=== PATIENT | male | born 1970 | race Two or more races ===

== ENCOUNTER → 2017-03-22 | Outpatient (CLI) | payer SELFPAY ==
[2017-03-22 16:03] LABS: CHLORIDE,CL 107 mmol/L (98-110); SODIUM,NA 140 mmol/L (136-146)
== END ==
LOC: MW.CHIM 15:16 → EDBD 15:16
PROVIDERS: ATTEND Internal Medicine
DX: Z00.00 Encounter for general adult medical examination without abnormal findings (principal); I10 Essential (primary) hypertension
CPT/HCPCS: 36415; 80053; 80061; 81001; 83036; 85025

== ENCOUNTER 2019-07-30 12:10 | Emergency (ER) | payer SELFPAY ==
--- NOTE | 2019-07-30 12:25 | EDM.PDOC ---
ED HPI GENERAL MEDICAL PROBLEM - General Chief Complaint: Lower Extremity Injury/Pain Stated Complaint: RIGHT LEG PAIN Time Seen by Provider: 07/30/19 12:13 Source of Information: Reports: Patient History Limitations: Reports: No Limitations - History of Present Illness INITIAL COMMENTS - FREE TEXT/NARRATIVE: HISTORY AND PHYSICAL: History of present illness: Patient is a 48-year-old male presents to the ED today with concern of right ankle injury a few days ago. Patient states he was walking into the grocery store and had stepped in a divot and twisted his right ankle but did not fall. Patient states he's been walking on it since but does have pain of the right ankle. Patient denies any prior injury to the area or any other symptoms or concerns. Patient denies fever, chills, chest pain, shortness of breath, or cough. Denies headache, neck stiff ness, change in vision, syncope, or near syncope. Denies nausea, vomiting, abdominal pain, diarrhea, constipation, or dysuria. Has not noted any blood in urine or stool. Patient has been eating and drinking appropriately. Review of systems: As per history of present illness and below otherwise all systems reviewed and negative. Past medical history: As per history of present illness and as reviewed below otherwise noncontributory. Surgical history: As per history of present illness and as reviewed below otherwise noncontributory. Social history: See social history for further information Family history: As per history of present illness and as reviewed below otherwise noncontributory. Physical exam: General: Patient is alert, oriented, and in no acute distress. Patient laying comfortably on exam table. HEENT: Atraumatic, normocephalic, pupils equal and reactive bilaterally, negative for conjunctival pallor or scleral icterus, mucous membranes moist, TMs normal bilaterally, throat clear, neck supple, nontender, trachea midline. No drooling or trismus noted. No meningeal signs. No hot potato voice noted. Lungs: Clear to auscultation, breath sounds equal bilaterally, chest nontender. Heart: S1S2, regular rate and rhythm without overt murmur Abdomen: Soft, nondistended, nontender. Negative for masses or hepatosplenomegaly. Negative for costovertebral tenderness. Pelvis: Stable nontender. Genitourinary: Deferred. Rectal: Deferred. Skin: Intact, warm, dry. No lesions or rashes noted. Extremities: Negative for cords or calf pain. Neurovascular unremarkable. There is moderate edema of the lateral malleolus of the right ankle. Patient has full range of motion of the right lower extremity without difficulty. Dorsalis these and posterior tibial pulses are grossly intact Neuro: Awake, alert, oriented. Cranial nerves II through XII unremarkable. Cerebellum unremarkable. Motor and sensory unremarkable throughout. Exam nonfocal. Notes: Discussed the importance for follow-up with a primary care provider and orthopedic provider. Voices understanding and is agreeable to plan of care. Denies any further questions or concerns at this time. Diagnostics: Ankle x-ray Therapeutics: Cam boot and crutches Prescription: None Impression: Right ankle injury Plan: 1. Rest, ice, elevate the affected extremity. You can apply ice 15 minutes on, 15 minutes off. 2. Tylenol and/or Ibuprofen as directed for pain management or discomfort. 3. Follow up with the Orthopedic provider and primary care provider as discussed. Return to the ED as needed and as discussed. Definitive disposition and diagnosis as appropriate pending reevaluation and review of above. Right Ankle Pain Score (Numeric/FACES): 10 - Related Data Allergies Allergy/AdvReac Type Severity Reaction Status Date / Time No Known Allergies Allergy Verified 07/30/19 12:23 Home Meds: Home Meds . [Unable to Verify Home Med List] 07/30/19 [History] Review of Systems - Review of Systems Review Of Systems: ROS reveals no pertinent complaints other than HPI. ED EXAM, GENERAL - Physical Exam Exam: See Below (see dictation) Course - Vital Signs Last Recorded V/S: Last Vital Signs Temp 36.9 C 07/30/19 12:20 Pulse 73 07/30/19 12:20 Resp 18 07/30/19 12:20 BP 157/90 H 07/30/19 12:20 Pulse Ox 97 07/30/19 12:20 - Orders/Labs/Meds Orders: Active Orders 24 hr Category Date Time Status DME for Discharge [COMM] Stat Oth 07/30/19 13:31 Ordered Departure - Departure Time of Disposition: 13:31 Disposition: Home, Self-Care 01 Clinical Impression: Right ankle injury Qualifiers: Encounter type: initial encounter Qualified Code(s): S99.911A - Unspecified injury of right ankle, initial encounter - Discharge Information Instructions: Ankle Sprain, [id number] Referrals: PCP,None [Primary Care Provider] - Forms: ED Department Discharge Additional Instructions: The following information is given to patients seen in the emergency department who are being discharged to home. This information is to outline your options for follow-up care. We provide all patients seen in our emergency department with a follow-up referral. The need for follow-up, as well as the timing and circumstances, are variable depending upon the specifics of your emergency department visit. If you don't have a primary care physician on staff, we will provide you with a referral. We always advise you to contact your personal physician following an emergency department visit to inform them of the circumstance of the visit and for follow-up with them and/or the need for any referrals to a consulting specialist. The emergency department will also refer you to a specialist when appropriate. This referral assures that you have the opportunity for follow-up care with a specialist. All of these measure are taken in an effort to provide you with optimal care, which includes your follow-up. Under all circumstances we always encourage you to contact your private physician who remains a resource for coordinating your care. When calling for follow-up care, please make the office aware that this follow-up is from your recent emergency room visit. If for any reason you are refused follow-up, please contact the [facility] Emergency Department at and asked to speak to the emergency department charge nurse. [facility] [address] [place] [id number] [place] [address] 1. Rest, ice, elevate the affected extremity. You can apply ice 15 minutes on, 15 minutes off. 2. Tylenol and/or Ibuprofen as directed for pain management or discomfort. 3. Follow up with the Orthopedic provider or primary care provider as discussed. Return to the ED as needed and as discussed. - My Orders Last 24 Hours: My Active Orders 07/30/19 13:31 DME for Discharge [COMM] Stat - Assessment/Plan Last 24 Hours: My Active Orders 07/30/19 13:31 DME for Discharge [COMM] Stat
--- NOTE | 2019-07-30 13:40 | CR ---
INDICATION: Pain right ankle. COMPARISON: None. Technique: Three-view study right ankle. FINDINGS: No evidence of acute fracture or dislocation. 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 Detailed radiographic examination of the right foot suggested to evaluate the subtalar articulation adequately. Tibiotalar articulation is unremarkable. Soft tissue fullness surrounding the ankle . Impression : No acute fracture. 1. Soft tissue fullness surrounding the right ankle. 2. Radiographic examination of the right foot suggested to rule out pathology involving the subtalar articulation. Dictated by Som Adame MD @ Jul 30 2019 1:36PM Signed by Dr. Som Adame @ Jul 30 2019 1:38PM
== END 2019-07-30 14:19 | disposition home or self-care (01) ==
LOC: MW.ED 12:10
DX: S99.911A Unspecified injury of right ankle, initial encounter (principal); X50.1XXA Overexertion from prolonged static or awkward postures, initial encounter
CPT/HCPCS: 73610-26-RT; 73610-RT; 99283-25

== ENCOUNTER 2019-10-16 21:45 | Emergency (ER) | payer SELFPAY ==
--- NOTE | 2019-10-16 22:10 | EDM.PDOC ---
ED HPI GENERAL MEDICAL PROBLEM - General Chief Complaint: Back Pain or Injury Stated Complaint: FALL Time Seen by Provider: 10/16/19 21:58 - History of Present Illness INITIAL COMMENTS - FREE TEXT/NARRATIVE: HISTORY AND PHYSICAL: History of present illness: Patient's 49-year-old male presents status post fall in which she slipped getting out of the car hitting his head and lower back there is no loss consciousness no head or neck pain or trauma he had no nausea no vomiting so only complaint is right back pain. Review of systems: As per history of present illness and below otherwise all systems reviewed and negative. Past medical history: As per history of present illness and as reviewed below otherwise noncontributory. Surgical history: As per history of present illness and as reviewed below otherwise noncontributory. Social history: No reported history of drug or alcohol abuse. Family history: As per history of present illness and as reviewed below otherwise noncontributory. Physical exam: HEENT: Atraumatic, normocephalic, pupils reactive, negative for conjunctival pallor or scleral icterus, mucous membranes moist, throat clear, neck supple, nontender, trachea midline. Lungs: Clear to auscultation, breath sounds equal bilaterally, chest nontender. Heart: S1S2, regular, negative for clicks, rubs, or JVD. Abdomen: Soft, nondistended, nontender. Negative for masses or hepatosplenomegaly. Negative for costovertebral tenderness. Pelvis: Stable nontender. Genitourinary: Deferred. Rectal: Deferred. Extremities: Atraumatic, negative for cords or calf pain. Neurovascular unremarkable. Neuro: Awake, alert, oriented. Cranial nerves II through XII unremarkable. Cerebellum unremarkable. Motor and sensory unremarkable throughout. Exam nonfocal. Back: Patient has no vertebral body or point tenderness deep tendon reflexes are normal patient is able stand on his toes and back on his heels Diagnostics: X-ray lumbar spine UA Therapeutics: None Impression: #1 observation status post fall #2 minor head injury #3 lumbar contusion/strain Definitive disposition and diagnosis as appropriate pending reevaluation and review of above. right lower back Pain Score (Numeric/FACES): 10 - Related Data Allergies Allergy/AdvReac Type Severity Reaction Status Date / Time No Known Allergies Allergy Verified 10/16/19 21:48 Home Meds: Home Meds Valsartan 80 mg PO DAILY 10/16/19 [History] Past Medical History - Past Health History Medical/Surgical History: Denies Medical/Surgical History Cardiovascular History: Reports: Hypertension Social & Family History - Family History Family Medical History: Noncontributory - Tobacco Use Smoking Status *Q: Never Smoker - Recreational Drug Use Recreational Drug Use: No ED ROS GENERAL - Review of Systems Review Of Systems: Comprehensive ROS is negative, except as noted in HPI. ED EXAM, GENERAL - Physical Exam Exam: See Below (dictation) Course - Vital Signs Last Recorded V/S: Last Vital Signs Temp 35.7 C 10/16/19 21:49 Pulse 64 10/16/19 21:49 Resp 18 10/16/19 21:49 BP 156/105 H 10/16/19 21:49 Pulse Ox 98 10/16/19 21:49 - Orders/Labs/Meds Orders: Active Orders 24 hr Category Date Time Status Lumbar Spine 2 or 3V [CR] Stat Exams 10/16/19 21:51 Ordered Pelvis 1V or 2V [CR] Stat Exams 10/16/19 21:51 Ordered UA RFX MANJEET AND CULT IF INDIC [URIN] Stat Lab 10/16/19 21:45 Received Departure - Departure Time of Disposition: 22:09 Disposition: Home, Self-Care 01 Condition: Good Clinical Impression: Head injury, Lumbar strain, Lumbar contusion - Discharge Information Referrals: PCP,None [Primary Care Provider] - Additional Instructions: The following information is given to patients seen in the emergency department who are being discharged to home. This information is to outline your options for follow-up care. We provide all patients seen in our emergency department with a follow-up referral. The need for follow-up, as well as the timing and circumstances, are variable depending upon the specifics of your emergency department visit. If you don't have a primary care physician on staff, we will provide you with a referral. We always advise you to contact your personal physician following an emergency department visit to inform them of the circumstance of the visit and for follow-up with them and/or the need for any referrals to a consulting specialist. The emergency department will also refer you to a specialist when appropriate. This referral assures that you have the opportunity for followup care with a specialist. All of these measure are taken in an effort to provide you with optimal care, which includes your followup. Under all circumstances we always encourage you to contact your private physician who remains a resource for coordinating your care. When calling for followup care, please make the office aware that this follow-up is from your recent emergency room visit. If for any reason you are refused follow-up, please contact the [facility] emergency department at and asked to speak to the emergency department charge nurse. Motrin/Tylenol as directed follow primary medical doctor return as needed as discussed - My Orders Last 24 Hours: My Active Orders 10/16/19 21:45 UA RFX MANJEET AND CULT IF INDIC [URIN] Stat 10/16/19 21:51 Lumbar Spine 2 or 3V [CR] Stat Pelvis 1V or 2V [CR] Stat - Assessment/Plan Last 24 Hours: My Active Orders 10/16/19 21:45 UA RFX MANJEET AND CULT IF INDIC [URIN] Stat 10/16/19 21:51 Lumbar Spine 2 or 3V [CR] Stat Pelvis 1V or 2V [CR] Stat
--- NOTE | 2019-10-16 22:51 | CR ---
HISTORY: Pain after fall COMPARISON: None available. FINDINGS: The lumbar spine was examined with AP, lateral, and lateral spot views for a total of three views. There is no sign of fracture or subluxation. The vertebral bodies are normal in height and they are in anatomic alignment. The disc spaces are normal in height as well. The visualized bony pelvis and bowel gas pattern are normal in appearance. IMPRESSION: Normal lumbar spine. Dictated by Christopher Sims MD @ Oct 16 2019 10:50PM Signed by Dr. Christopher Sims @ Oct 16 2019 10:51PM
--- NOTE | 2019-10-16 22:54 | CR ---
HISTORY: Pain after fall COMPARISON: None available. FINDINGS: A single AP view of the pelvis shows no sign of fracture or dislocation. The hips are normal in appearance with no significant degenerative changes. The inferior lumbar spine is normal in appearance. The soft tissues of the pelvis are unremarkable. IMPRESSION: Normal examination of the pelvis. Dictated by Christopher Sims MD @ Oct 16 2019 10:50PM Signed by Dr. Christopher Sims @ Oct 16 2019 10:51PM
== END 2019-10-16 23:10 | disposition home or self-care (01) ==
LOC: MW.ED 21:45
DX: S09.90XA Unspecified injury of head, initial encounter (principal); S39.012A Strain of muscle, fascia and tendon of lower back, initial encounter; I10 Essential (primary) hypertension; Z79.899 Other long term (current) drug therapy; V48.4XXA Person boarding or alighting a car injured in noncollision transport accident, initial encounter
CPT/HCPCS: 72100; 72100-26; 72170; 72170-26; 81001; 99283-25

== ENCOUNTER 2019-11-20 14:44 | Emergency (ER) | payer BC, OTHER ==
--- NOTE | 2019-11-20 15:23 | EDM.PDOC ---
ED HPI GENERAL MEDICAL PROBLEM - General Chief Complaint: General Stated Complaint: DIZZY Time Seen by Provider: 11/20/19 15:23 Source of Information: Reports: Patient, Family History Limitations: Reports: No Limitations - History of Present Illness INITIAL COMMENTS - FREE TEXT/NARRATIVE: HISTORY AND PHYSICAL: History of present illness: Patient is a 49-year-old male presents to the ED with complaint of dizziness. Patient states he has been out of his blood pressure medication for the past 3 weeks. He has been having dizziness on and off as well as a mild headache. He denies head injury or trauma, chest pain, shortness of breath, nausea, vomiting , abdominal pain. Review of systems: As per history of present illness and below otherwise all systems reviewed and negative. Past medical history: As per history of present illness and as reviewed below otherwise noncontributory. Surgical history: As per history of present illness and as reviewed below otherwise noncontributory. Social history: No reported history of drug or alcohol abuse. Family history: As per history of present illness and as reviewed below otherwise noncontributory. Physical exam: General: Patient sitting comfortably in no acute distress and nontoxic appearing HEENT: Atraumatic, normocephalic, pupils reactive, negative for conjunctival pallor or scleral icterus, mucous membranes moist, throat clear, neck supple, nontender, trachea midline. No meningeal signs. Lungs: Clear to auscultation, breath sounds equal bilaterally, chest nontender. Heart: S1S2, regular, negative for clicks, rubs, or overt murmur. Abdomen: Soft, nondistended, nontender. Negative for masses or hepatosplenomegaly. Negative for costovertebral tenderness. No rigidity, rebound , guarding. Pelvis: Stable nontender. Genitourinary: Deferred. Rectal: Deferred. Extremities: Atraumatic, negative for cords or calf pain. Neurovascular unremarkable. Neuro: Awake, alert, oriented. Cranial nerves II through XII unremarkable. Cerebellum unremarkable. Motor and sensory unremarkable throughout. Exam nonfocal. Notes: Diagnostics: EKG, troponin, CBC, CMP Therapeutics: none Prescriptions: Valsartan Impression: Medication refill, history of hypertension Definitive disposition and diagnosis as appropriate pending reevaluation and review of above. - Related Data Allergies Allergy/AdvReac Type Severity Reaction Status Date / Time No Known Allergies Allergy Verified 11/20/19 15:12 Home Meds: Home Meds Valsartan 80 mg PO DAILY 10/16/19 [History] Valsartan 80 mg PO DAILY 20 Days #20 tablet 11/20/19 [Rx] Past Medical History - Past Health History Medical/Surgical History: Denies Medical/Surgical History Cardiovascular History: Reports: Hypertension Social & Family History - Family History Family Medical History: Noncontributory - Tobacco Use Smoking Status *Q: Never Smoker - Recreational Drug Use Recreational Drug Use: No ED ROS GENERAL - Review of Systems Review Of Systems: Comprehensive ROS is negative, except as noted in HPI. ED EXAM, GENERAL - Physical Exam Exam: See Below (see dictation) Course - Vital Signs Last Recorded V/S: Last Vital Signs Temp 98.5 F 11/20/19 15:09 Pulse 57 L 11/20/19 15:09 Resp 16 11/20/19 15:09 BP 164/94 H 11/20/19 15:09 Pulse Ox 96 11/20/19 15:09 - Orders/Labs/Meds Orders: Active Orders 24 hr Category Date Time Status EKG Documentation Completion [RC] STAT Care 11/20/19 15:16 Active Labs: Laboratory Tests 11/20/19 11/20/19 Range/Units 15:48 15:48 WBC 6.03 (4.0-11.0) K/uL RBC 5.54 (4.50-5.90) M/uL Hgb 16.9 (13.0-17.0) g/dL Hct 49.2 (38.0-50.0) % MCV 88.8 (80.0-98.0) fL MCH 30.5 (27.0-32.0) pg MCHC 34.3 (31.0-37.0) g/dL RDW Std Deviation 43.1 (28.0-62.0) fl RDW Coeff of Bora 13 (11.0-15.0) % Plt Count 174 (150-400) K/uL MPV 10.90 (7.40-12.00) fL Neut % (Auto) 47.4 L (48.0-80.0) % Lymph % (Auto) 31.7 (16.0-40.0) % Hale % (Auto) 13.8 (0.0-15.0) % Eos % (Auto) 6.8 (0.0-7.0) % Baso % (Auto) 0.3 (0.0-1.5) % Neut # (Auto) 2.9 (1.4-5.7) K/uL Lymph # (Auto) 1.9 (0.6-2.4) K/uL Hale # (Auto) 0.8 (0.0-0.8) K/uL Eos # (Auto) 0.4 (0.0-0.7) K/uL Baso # (Auto) 0.0 (0.0-0.1) K/uL Nucleated RBC % 0.0 /100WBC Nucleated RBCs # 0 K/uL Sodium 139 (136-148) mmol/L Potassium 3.9 (3.5-5.1) mmol/L Chloride 106 (98-107) mmol/L Carbon Dioxide 23.4 (21.0-32.0) mmol/L BUN 16 (7.0-18.0) mg/dL Creatinine 0.9 (0.8-1.3) mg/dL Est Cr Clr Drug Dosing 99.29 mL/min Estimated GFR (MDRD) > 60.0 ml/min Glucose 88 (74-106) mg/dL Calcium 8.8 (8.5-10.1) mg/dL Total Bilirubin 0.4 (0.2-1.0) mg/dL AST 19 (15-37) IU/L ALT 30 (14-63) IU/L Alkaline Phosphatase 64 (46-116) U/L Troponin I < 0.050 (0.000-0.056) ng/mL Total Protein 7.5 (6.4-8.2) g/dL Albumin 3.8 (3.4-5.0) g/dL Globulin 3.7 (2.6-4.0) g/dL Albumin/Globulin Ratio 1.0 (0.9-1.6) Departure - Departure Time of Disposition: 16:36 Disposition: Home, Self-Care 01 Condition: Good Clinical Impression: Medication refill, History of hypertension - Discharge Information Prescriptions: Valsartan 80 mg PO DAILY 20 Days #20 tablet Instructions: Medicine Refill at the Emergency Department Referrals: Shelton Cheema MD [Primary Care Provider] - Forms: ED Department Discharge Additional Instructions: The following information is given to patients seen in the emergency department who are being discharged to home. This information is to outline your options for follow-up care. We provide all patients seen in our emergency department with a follow-up referral. The need for follow-up, as well as the timing and circumstances, are variable depending upon the specifics of your emergency department visit. If you don't have a primary care physician on staff, we will provide you with a referral. We always advise you to contact your personal physician following an emergency department visit to inform them of the circumstance of the visit and for follow-up with them and/or the need for any referrals to a consulting specialist. The emergency department will also refer you to a specialist when appropriate. This referral assures that you have the opportunity for follow-up care with a specialist. All of these measure are taken in an effort to provide you with optimal care, which includes your follow-up. Under all circumstances we always encourage you to contact your private physician who remains a resource for coordinating your care. When calling for follow-up care, please make the office aware that this follow-up is from your recent emergency room visit. If for any reason you are refused follow-up, please contact the [facility] Emergency Department at and asked to speak to the emergency department charge nurse. [facility] [address] [place] [address] [place] [address] Take medication as instructed Follow up with primary care provider Return to ED as needed as discussed Sepsis Event Note - Evaluation Sepsis Screening Result: No Definite Risk - Focused Exam Vital Signs: Vital Signs Temp Pulse Resp BP Pulse Ox 11/20/19 15:09 98.5 F 57 L 16 164/94 H 96 Date Exam was Performed: 11/20/19 Time Exam was Performed: 17:29 - My Orders Last 24 Hours: My Active Orders 11/20/19 15:16 EKG Documentation Completion [RC] STAT - Assessment/Plan Last 24 Hours: My Active Orders 11/20/19 15:16 EKG Documentation Completion [RC] STAT
[2019-11-20 16:31] LABS: BLOOD UREA NITROGEN,BUN 16 mg/dL (7.0-18.0); CARBON DIOXIDE,CO2 23.4 mmol/L (21.0-32.0); CHLORIDE,CL 106 mmol/L (98-107); GLUCOSE RANDOM 88 mg/dL (74-106); POTASSIUM,K 3.9 mmol/L (3.5-5.1); SODIUM,NA 139 mmol/L (136-148)
== END 2019-11-20 17:10 | disposition home or self-care (01) ==
LOC: MW.ED 14:44
DX: I10 Essential (primary) hypertension (principal); Z76.0 Encounter for issue of repeat prescription
CPT/HCPCS: 36415; 80053; 84484; 85025; 93005; 99283; 99284-25

== ENCOUNTER 2019-11-26 13:57 | Emergency (ER) | payer BC ==
[2019-11-26] MEDS ORDERED: Aspirin 81 MG Tab.Chew PO ONE (14:01)
--- NOTE | 2019-11-26 14:55 | CR ---
INDICATION: Shortness of breath TECHNIQUE: Chest 2 views. COMPARISON: None FINDINGS: Cardiovascular and mediastinum: Mild cardiomegaly. Mediastinum is within normal limits. Lungs and pleural spaces: Lungs are clear. No sign of infiltrate or mass. No sign of pleural effusion. No pneumothorax. Bones and soft tissues: Degenerative changes thoracic spine. IMPRESSION: No acute pulmonary or cardiac abnormalities. Mild cardiomegaly. Dictated by Boby Chaves MD @ 11/26/2019 2:54:31 PM Dictated by: Boby Chaves MD @ 11/26/2019 14:54:34 (Electronically Signed)
[2019-11-26 14:57] LABS: BLOOD UREA NITROGEN,BUN 14 mg/dL (7.0-18.0); CARBON DIOXIDE,CO2 25.2 mmol/L (21.0-32.0); CHLORIDE,CL 104 mmol/L (98-107); GLUCOSE RANDOM 111 mg/dL (74-106); LIPASE 128 U/L (73-393); POTASSIUM,K 3.9 mmol/L (3.5-5.1); SODIUM,NA 140 mmol/L (136-148)
[2019-11-26] MEDS ORDERED: Iopamidol 755 MG/ML 200 ML Multipack Bottle IVPUSH ONE (15:54)
--- NOTE | 2019-11-26 16:43 | CT ---
INDICATION: Chest pain, blurred vision, hypertension COMPARISON: Two-view chest radiograph still 11/26/2019 TECHNIQUE: Contrast enhanced axial CT imaging through the chest, optimized for assessment of the pulmonary arterial tree. 55 mL Isovue 370 contrast agent was administered intravenously. Sagittal and coronal reconstructions are provided. FINDINGS: There is adequate opacification of the pulmonary arterial tree without evidence of thromboembolism. There is normal caliber of the main pulmonary artery and thoracic aorta. The heart is normal in size. There is no pericardial effusion. There is no mediastinal lymphadenopathy. The lungs are clear. There is no pleural effusion or pneumothorax. The included osseous structures are unremarkable. No significant abnormality is demonstrated in the visualized upper abdomen. Small hypoattenuating lesions in the partially visualized liver most likely represent benign cysts. IMPRESSION: No evidence of pulmonary thromboembolism or other acute intrathoracic process. Please note that all CT scans at this facility use dose modulation, iterative reconstruction, and/or weight-based dosing when appropriate to reduce radiation dose to as low as reasonably achievable. Dictated by Kimberly Calix MD @ Nov 26 2019 4:41PM Signed by Dr. Kimberly Calix @ Nov 26 2019 4:41PM
--- NOTE | 2019-11-26 18:39 | EDM.PDOC ---
ED [facility] GENERAL MEDICAL PROBLEM - General Chief Complaint: Chest Pain Stated Complaint: HIGH BLOOD PRESSURE Time Seen by Provider: 11/26/19 14:00 - History of Present Illness INITIAL COMMENTS - FREE TEXT/NARRATIVE: HPI 49-year-old obese male with HTN presents for evaluation of resolved poorly characterized substernal chest pain that appeared to radiated to his neck and occurred this morning while cleaning the shop, worsened by physical activity, relieved by rest. Patient denies recent immobilization, leg trauma, estrogen use , surgery in the last four weeks, hemoptysis, or malignancy in the last 6 months. M/S/F/SocHx notable for: please see HPI; remainder reviewed with patient and in chart. ROS: Negative constitutional, eye, cardiovascular, pulmonary, GI, , MSK, skin , neurologic, psychiatric, endocrine unless noted in the HPI. Exam HR 84, RR 18, BP 154/113, T 36.2C, SaO2 96% on room air. Gen: Pleasant, non-toxic appearing, resting comfortably. HEENT: NC, AT, PEERL, EOMI. Resp: Clear to auscultation bilaterally, normal work of breathing. Card: RRR with no M/R/G, no crackles in lung bases, no pedal edema, no JVD appreciated. GI: NT/ND Vascular: Both ankles, calves, and thighs of equal size, no calf tenderness to palpation bilaterally. MSK: No chest wall TTP. No visible deformities, strength and tone WNL. Skin: Normal color with no visible lesions. Neuro: AO x 3, no facial asymmetry, vision and hearing WNL. Psych: Mood and affect appropriate. Labs / Imaging (pertinent): WBC 9.94, Hb 18.1, Na sodium 140, potassium 3.9, glucose 111, AST 15, ALT 29, total bilirubin 0.4, alkaline phosphatase 84, lipase 128, troponin (2 PM) < 0.050 (1705) <0.050. d-dimer 0.66 EKG: SR 93 bpm, nonspecific ST segment changes in the anterior leads, no further ST segment elevations or depressions, no LBBB, PAC present. CXR: no acute pulmonary or cardiac abnormalities. CT Chest: no evidence of pulmonary thromboembolism other acute intrathoracic process. MDM Previous chart, nursing note, and vitals reviewed. A: 49-year-old obese male with HTN presents for evaluation of resolved poorly characterized substernal chest pain that appeared to radiated to his neck and occurred this morning while cleaning the shop, worsened by physical activity, relieved by rest. DDx and Evaluation: * ACS - doubt ACS given a non-ischemic EKG and negative serial troponins. * UA - unlikely given the atypical history and alternate diagnosis. HEART score 4 (Hx - 1, EKG - 1, age - 1, risk factors - 1, troponin - 0; 30 day MACE: 12- 16.6%). However, patient is low risk by the EDACS score. * Pericarditis - consider pericarditis unlikely given the lack of CA segment depressions as well as the absence of diffuse ST-segment elevations, lack of reduction of pain when supine, and lack of a friction rub. * Myocarditis - unlikely given the negative troponin and an EKG without characteristic CA-segment or ST-segment changes. * Dissection - dissection is unlikely given symptoms, and lack of mediastinal widening. * PE - low clinical suspicion given history and alternate diagnosis, further risk stratification (e.g.) Well's not indicated. * Mediastinal Air - no evidence by CXR or auscultation. * Pneumothorax - no evidence by CXR or physical exam. * MSK - doubt given lack of reproducibility on exam. * Endocarditis - no identifiable risk factors, patient afebrile, no new murmurs appreciated on exam; doubt. * GI (Esophageal rupture, GERD) - esophageal rupture effectively excluded given the lack of mediastinal widening, non-toxic appearance, and lack of identifiable risk factors. While not definitively excluded, further evaluation of GERD is deferred to an outpatient setting. ED Course: 1. Patient given ASA. Vital signs remained stable and within clinically acceptable limits. 2. Repeat evaluation at 6:30 PM with patient resting comfortably, pain free. Discussed management options with patient, recommended admission for provocative testing, reviewed elevated heart score with the estimated risk of 12 -16.6%. Review the patient may have sudden cardiac is his for symptom. Answered all of the patients questions and the patient made an informed decision to be discharged home. Provide patient with a list of primary care physicians for follow-up. Recommend patient take 81 mg aspirin daily. Disposition: Discharge with PCP follow up. Return to care precautions given verbally and in writing. Impression: Chest Pain. (please reference below for remainder of encounter information) Emergency Department Assessment of Chest Pain Score (EDACS) from [employer] on 11/26/2019 All calculations should be rechecked by clinician prior to use RESULT SUMMARY: 15 points Low risk by the EDACS Score. If the patient also has: (1) EKG without new ischemic changes and (2) negative initial and 2-hour troponins, then this patient is safe for discharge to early outpatient follow-up investigation (or proceed to earlier inpatient testing). If EKG with ischemic changes or positive troponin, they are not low risk and require normal risk stratification. INPUTS: Age > 49 years Sex > 6 = Male Known coronary artery disease or =3 risk factors > 0 = No Diaphoresis > 0 = No Pain radiates to arm, shoulder, neck, or jaw > 5 = Yes Pain occurred or worsened with inspiration > 0 = No Pain is reproduced by palpation > 0 = No chest Pain Score (Numeric/FACES): 10 - Related Data Allergies Allergy/AdvReac Type Severity Reaction Status Date / Time No Known Allergies Allergy Verified 11/26/19 13:58 Home Meds: Home Meds Valsartan 80 mg PO DAILY 20 Days #20 tablet 11/20/19 [Rx] Past Medical History - Past Health History Medical/Surgical History: Denies Medical/Surgical History HEENT History: Reports: None Cardiovascular History: Reports: Hypertension Respiratory History: Reports: None Gastrointestinal History: Reports: None Genitourinary History: Reports: None Musculoskeletal History: Reports: None Neurological History: Reports: None Psychiatric History: Reports: None Endocrine/Metabolic History: Reports: None Hematologic History: Reports: None Immunologic History: Reports: None Oncologic (Cancer) History: Reports: None Dermatologic History: Reports: None - Past Surgical History Head Surgeries/Procedures: Reports: None HEENT Surgical History: Reports: None Cardiovascular Surgical History: Reports: None Respiratory Surgical History: Reports: None GI Surgical History: Reports: None Male Surgical History: Reports: None Endocrine Surgical History: Reports: None Neurological Surgical History: Reports: None Musculoskeletal Surgical History: Reports: None Oncologic Surgical History: Reports: None Dermatological Surgical History: Reports: None Social & Family History - Family History Family Medical History: Noncontributory - Tobacco Use Smoking Status *Q: Never Smoker Second Hand Smoke Exposure: No - Caffeine Use Caffeine Use: Reports: None - Recreational Drug Use Recreational Drug Use: No ED ROS GENERAL - Review of Systems Review Of Systems: See Below ED EXAM, GENERAL - Physical Exam Exam: See Below Course - Vital Signs Last Recorded V/S: Last Vital Signs Temp 36.2 C 11/26/19 13:59 Pulse 81 11/26/19 17:00 Resp 18 11/26/19 17:00 BP 118/84 11/26/19 17:00 Pulse Ox 97 11/26/19 17:00 - Orders/Labs/Meds Orders: Active Orders 24 hr Category Date Time Status EKG 12 Lead [EKG Documentation Completion] [RC] STAT Care 11/26/19 14:01 Active Labs: Laboratory Tests 11/26/19 11/26/19 11/26/19 Range/Units 14:00 14:00 14:00 WBC 9.94 (4.0-11.0) K/uL RBC 5.94 H (4.50-5.90) M/uL Hgb 18.1 H (13.0-17.0) g/dL Hct 52.0 H (38.0-50.0) % MCV 87.5 (80.0-98.0) fL MCH 30.5 (27.0-32.0) pg MCHC 34.8 (31.0-37.0) g/dL RDW Std Deviation 41.2 (28.0-62.0) fl RDW Coeff of Bora 13 (11.0-15.0) % Plt Count 205 (150-400) K/uL MPV 11.10 (7.40-12.00) fL Neut % (Auto) 63.6 (48.0-80.0) % Lymph % (Auto) 23.2 (16.0-40.0) % Coos % (Auto) 10.2 (0.0-15.0) % Eos % (Auto) 2.8 (0.0-7.0) % Baso % (Auto) 0.2 (0.0-1.5) % Neut # (Auto) 6.3 H (1.4-5.7) K/uL Lymph # (Auto) 2.3 (0.6-2.4) K/uL Coos # (Auto) 1.0 H (0.0-0.8) K/uL Eos # (Auto) 0.3 (0.0-0.7) K/uL Baso # (Auto) 0.0 (0.0-0.1) K/uL Nucleated RBC % 0.0 /100WBC Nucleated RBCs # 0 K/uL D-Dimer, Quantitative 0.66 H (0.0-0.50) mg/L FEU Sodium 140 (136-148) mmol/L Potassium 3.9 (3.5-5.1) mmol/L Chloride 104 (98-107) mmol/L Carbon Dioxide 25.2 (21.0-32.0) mmol/L BUN 14 (7.0-18.0) mg/dL Creatinine 1.2 (0.8-1.3) mg/dL Est Cr Clr Drug Dosing 84.15 mL/min Estimated GFR (MDRD) > 60.0 ml/min Glucose 111 H (74-106) mg/dL Calcium 8.9 (8.5-10.1) mg/dL Total Bilirubin 0.4 (0.2-1.0) mg/dL AST 15 (15-37) IU/L ALT 29 (14-63) IU/L Alkaline Phosphatase 84 (46-116) U/L Troponin I < 0.050 (0.000-0.056) ng/mL Total Protein 7.8 (6.4-8.2) g/dL Albumin 3.9 (3.4-5.0) g/dL Globulin 3.9 (2.6-4.0) g/dL Albumin/Globulin Ratio 1.0 (0.9-1.6) Lipase 128 (73-393) U/L 11/26/19 Range/Units 17:05 WBC (4.0-11.0) K/uL RBC (4.50-5.90) M/uL Hgb (13.0-17.0) g/dL Hct (38.0-50.0) % MCV (80.0-98.0) fL MCH (27.0-32.0) pg MCHC (31.0-37.0) g/dL RDW Std Deviation (28.0-62.0) fl RDW Coeff of Bora (11.0-15.0) % Plt Count (150-400) K/uL MPV (7.40-12.00) fL Neut % (Auto) (48.0-80.0) % Lymph % (Auto) (16.0-40.0) % Coos % (Auto) (0.0-15.0) % Eos % (Auto) (0.0-7.0) % Baso % (Auto) (0.0-1.5) % Neut # (Auto) (1.4-5.7) K/uL Lymph # (Auto) (0.6-2.4) K/uL Coos # (Auto) (0.0-0.8) K/uL Eos # (Auto) (0.0-0.7) K/uL Baso # (Auto) (0.0-0.1) K/uL Nucleated RBC % /100WBC Nucleated RBCs # K/uL D-Dimer, Quantitative (0.0-0.50) mg/L FEU Sodium (136-148) mmol/L Potassium (3.5-5.1) mmol/L Chloride (98-107) mmol/L Carbon Dioxide (21.0-32.0) mmol/L BUN (7.0-18.0) mg/dL Creatinine (0.8-1.3) mg/dL Est Cr Clr Drug Dosing mL/min Estimated GFR (MDRD) ml/min Glucose (74-106) mg/dL Calcium (8.5-10.1) mg/dL Total Bilirubin (0.2-1.0) mg/dL AST (15-37) IU/L ALT (14-63) IU/L Alkaline Phosphatase (46-116) U/L Troponin I < 0.050 (0.000-0.056) ng/mL Total Protein (6.4-8.2) g/dL Albumin (3.4-5.0) g/dL Globulin (2.6-4.0) g/dL Albumin/Globulin Ratio (0.9-1.6) Lipase (73-393) U/L Meds: Medications Discontinued Medications Generic Name Dose Route Start Last Admin Trade Name iMchael PRN Reason Stop Dose Admin Aspirin 324 mg 11/26/19 14:01 11/26/19 14:18 Aspirin PO 11/26/19 14:02 324 mg ONETIME ONE Administration Iopamidol 55 ml 11/26/19 15:54 11/26/19 15:54 Isovue Multipack-370 (76%) IVPUSH 11/26/19 15:55 55 ml ONETIME ONE Administration Departure - Departure Time of Disposition: 18:39 Disposition: Home, Self-Care 01 Clinical Impression: Chest pain - Discharge Information Referrals: PCP,Unobtain [Primary Care Provider] - Additional Instructions: You were in seen in the [facility] Emergency Department for evaluation of chest pain. As we discussed, there are many possible causes for chest pain, one of which is heart disease called unstable angina. This is a type of heart disease that may lead to a heart attack or sudden in the near future. Hospitalization for further evaluation was recommended. You are believed to have a 12 to 16.6% risk in the next 30 days of a major adverse cardiac event, this include sudden . Please follow-up with a primary care physician within 48 hours for further testing and care. If you develop any new symptoms please return immediately to the emergency department. In the meantime, please take one 81 mg aspirin tablet daily. Please read and follow all of the instructions below. When calling for follow-up care, please make the office aware that this follow- up is from your recent emergency room visit. If for any reason you are refused follow-up, please contact the [facility] Emergency Department at and asked to speak to the emergency department charge nurse. Your care today was limited to identifying and treating emergent medical problems only. Many people have subtle differences in their test results that require follow up with their outpatient physician(s) to correctly determine if this represents a normal variation or concerning abnormality with respect to your specific health. The care given to you today was limited to identifying and treating emergent medical problems - you need to request a copy of all of your medical records from today's visit and follow up with your outpatient physician(s) to review both today's visit and your overall health. If you have any new symptoms or if you are at all concerned about your health please return immediately to the emergency department. Prescriptions: If you are uninsured or have financial difficulties with filling your prescription(s), you may consider using a free pharmacy discount service such as [employer] ([employer]) or [employer] ([employer]). These services allow you to search for a medication on your phone (or computer) and obtain a coupon that usually has a significant discount from the list chaparro at a pharmacy. Your physician as well as [facility] does not have a financial relationship with either of these services. You may also wish to speak with your physician to determine if lower cost prescriptions are possible. Obtaining primary care: 1. [facility] provides pediatrics (children), family medicine (children, adults, and some obstetrical care), and internal medicine (adults). Further specialty care is also available. Same day appointments are available. They may be contacted at [phone] and are open Monday through Monday 8 AM to 5 PM. The [facility] are located at [facility], [address] [place] [address] 1320. 2. [facility] offers family medicine, internal medicine, [facility], and further specialty care. [facility] may be contacted at [phone]. [facility] is located at [address] [place], [address]. 3. If you have health insurance, please also contact your insurer for a list of accepting providers under your policy, you may contact these providers for further health care. Occupational health: Work related injuries may consider following up with [facility], . Occupational health services are located at [address] [place] [address] and are open Monday through Monday from 7: 30 am to 5:00 pm. Obstetrical and Gynecological Care: [facility], , Monday through Monday 8 AM to 5 PM. [address] [address]. Eyecare: If you have an eye injury you should follow up with your electric lineman or with [facility], at [phone] or [phone] , they are located at [address] [place] [address]. Dental Care Gabino Mc DDS. [address] [facility].[place], [place]. Ph. [phone] Robert Mc DDS MS. [address] [facility] [address], [place], [place]. Ph. [phone] James Camarillo DDS. 10 11/[address] [place] [address]. Ph. [phone] Rajat Mitchell DDS. [address] [facility] [address] [place], [place]. Ph. [phone] Antonio Sierra DDS PC. [address] [facility] [address] [place], [place]. Ph. Bridgette Jay DDS. [address] [facility]. Ph. [phone] [facility]. [address] [place], [place]. Ph. [phone] [facility]. [address] [place] [address], [place], [place]. Ph. [phone] [facility] [address] [place] [phone]. Ph. [facility]. [address] [place] [address] [address] [place], [place]. Ph. [facility]. [address] [place], [place]. Ph. [phone] Chest Pain of Unclear Cause You have been seen for chest pain. The cause of your pain is not yet known. You should follow up with your primary care physician in the next day to discuss having a cardiac stress test within 48 hours of today. Your doctor has learned about your medical history, examined you, and checked any tests that were done. Still, it is unclear why you are having pain. The doctor thinks there is only a very small chance that your pain is caused by a life-threatening condition. Later, your primary care doctor might do more tests or check you again. Sometimes chest pain is caused by a dangerous condition, like a heart attack, aorta injury, blood clot in the lung, or collapsed lung. It is unlikely that your pain is caused by a life-threatening condition if: Your chest pain lasts only a few seconds at a time; you are not short of breath, nauseated (sick to your stomach), sweaty, or lightheaded; your pain gets worse when you twist or bend; your pain improves with exercise or hard work. Chest pain is serious. It is VERY IMPORTANT that you follow up with your regular doctor and seek medical attention immediately here or at the nearest Emergency Department if your symptoms become worse or they change. YOU SHOULD SEEK MEDICAL ATTENTION IMMEDIATELY, EITHER HERE OR AT THE NEAREST EMERGENCY DEPARTMENT, IF ANY OF THE FOLLOWING OCCURS: Your pain gets worse. Your pain makes you short of breath, nauseated, or sweaty. Your pain gets worse when you walk, go up stairs, or exert yourself. You feel weak, lightheaded, or faint. It hurts to breathe. Your leg swells. Your symptoms get worse or you have new symptoms or concerns. High Blood Pressure (Hypertension) When you were in the emergency department you had an abnormally high blood pressure. High blood pressure can be without symptoms. However high blood pressure can lead to many medical problems including kidney disease, strokes, and heart attacks. Your blood pressure may have been elevated due to pain or the stress of being in the emergency department, however half of people with an elevated blood pressure in the emergency department have export clerk problems with high blood pressure. Please see your primary care physician in 2-3 days for a repeat check of your blood pressure. This may help prevent many health serious problems in the future. Please return to the emergency department if you develop any of the following: chest pain, shortness of breath, new or severe headache, changes in vision or hearing, weakness, or if you are otherwise concerned about your health. Sepsis Event Note - Evaluation Sepsis Screening Result: No Definite Risk - Focused Exam Vital Signs: Vital Signs Temp Pulse Resp BP Pulse Ox 11/26/19 17:00 81 18 118/84 97 11/26/19 16:00 84 18 138/79 96 11/26/19 14:59 83 15 132/87 96 11/26/19 13:59 36.2 C 84 18 154/113 H 96 Date Exam was Performed: 11/26/19 Time Exam was Performed: 18:37 - My Orders Last 24 Hours: My Active Orders 11/26/19 14:01 EKG 12 Lead [EKG Documentation Completion] [RC] STAT - Assessment/Plan Last 24 Hours: My Active Orders 11/26/19 14:01 EKG 12 Lead [EKG Documentation Completion] [RC] STAT
== END 2019-11-26 18:52 | disposition home or self-care (01) ==
LOC: MW.ED 13:57
DX: R07.89 Other chest pain (principal); R07.2 Precordial pain
CPT/HCPCS: 36415; 71046; 71275; 80053; 83690; 84484; 85025; 85379; 93005; 99285; A9270; Q9967

== ENCOUNTER 2020-03-30 21:17 | Emergency (ER) | payer SELFPAY ==
--- NOTE | 2020-03-30 21:40 | EDM.PDOC ---
ED HPI GENERAL MEDICAL PROBLEM - General Chief Complaint: ENT Problem Stated Complaint: RIGHT EAR BLEEDING Time Seen by Provider: 03/30/20 21:39 Source of Information: Reports: Patient History Limitations: Reports: No Limitations - History of Present Illness INITIAL COMMENTS - FREE TEXT/NARRATIVE: HISTORY AND PHYSICAL: History of present illness: Patient is a 49-year-old male presents to the ED with complaint of right ear bleeding. Patient states he got out of the shower this afternoon and was cleaning his ear with a q-tip when his ear starting bleeding. He denies any pain , tinnitus, or dizziness. He is on anticoagulant for history of atrial fibrillation, uncertain which one. Review of systems: As per history of present illness and below otherwise all systems reviewed and negative. Past medical history: As per history of present illness and as reviewed below otherwise noncontributory. Surgical history: As per history of present illness and as reviewed below otherwise noncontributory. Social history: No reported history of drug or alcohol abuse. Family history: As per history of present illness and as reviewed below otherwise noncontributory. Physical exam: General: Patient sitting comfortably in no acute distress and nontoxic appearing HEENT: TMs are intact and clear bilaterally. There is small amount of blood in the right ear canal with a small abrasion that is no longer bleeding. Atraumatic , normocephalic, pupils reactive, negative for conjunctival pallor or scleral icterus, mucous membranes moist, throat clear, neck supple, nontender, trachea midline. No meningeal signs. Lungs: Clear to auscultation, breath sounds equal bilaterally, chest nontender. Heart: S1S2, regular, negative for clicks, rubs, or overt murmur. Abdomen: Soft, nondistended, nontender. Negative for masses or hepatosplenomegaly. Negative for costovertebral tenderness. No rigidity, rebound , guarding. Pelvis: Stable nontender. Genitourinary: Deferred. Rectal: Deferred. Extremities: Atraumatic, negative for cords or calf pain. Neurovascular unremarkable. Neuro: Awake, alert, oriented. Cranial nerves II through XII unremarkable. Cerebellum unremarkable. Motor and sensory unremarkable throughout. Exam nonfocal. Notes: Diagnostics: none Therapeutics: none Prescriptions: none Impression: Abrasion right ear canal Plan: Follow up with primary care provider Return to ED as needed as discussed Definitive disposition and diagnosis as appropriate pending reevaluation and review of above. - Related Data Allergies Allergy/AdvReac Type Severity Reaction Status Date / Time No Known Allergies Allergy Verified 03/30/20 21:37 Home Meds: Home Meds Valsartan 80 mg PO DAILY 20 Days #20 tablet 11/20/19 [Rx] Non-Formulary Medication [NF Drug] 03/30/20 [History] Non-Formulary Medication [NF Drug] 03/30/20 [History] Past Medical History - Past Health History Medical/Surgical History: Denies Medical/Surgical History HEENT History: Reports: None Cardiovascular History: Reports: Hypertension Respiratory History: Reports: None Gastrointestinal History: Reports: None Genitourinary History: Reports: None Musculoskeletal History: Reports: None Neurological History: Reports: None Psychiatric History: Reports: None Endocrine/Metabolic History: Reports: None Hematologic History: Reports: None Immunologic History: Reports: None Oncologic (Cancer) History: Reports: None Dermatologic History: Reports: None - Past Surgical History Head Surgeries/Procedures: Reports: None HEENT Surgical History: Reports: None Cardiovascular Surgical History: Reports: None Respiratory Surgical History: Reports: None GI Surgical History: Reports: None Male Surgical History: Reports: None Endocrine Surgical History: Reports: None Neurological Surgical History: Reports: None Musculoskeletal Surgical History: Reports: None Oncologic Surgical History: Reports: None Dermatological Surgical History: Reports: None Social & Family History - Family History Family Medical History: Noncontributory - Caffeine Use Caffeine Use: Reports: None ED ROS ENT - Review of Systems Review Of Systems: Comprehensive ROS is negative, except as noted in HPI. ED EXAM, ENT - Physical Exam Exam: See Below (see dictation) Course - Vital Signs Last Recorded V/S: Last Vital Signs Temp 96.9 F 03/30/20 21:32 Pulse 54 L 03/30/20 21:32 Resp 18 03/30/20 21:32 BP 147/76 H 03/30/20 21:32 Pulse Ox 96 03/30/20 21:32 Departure - Departure Time of Disposition: 21:48 Disposition: Home, Self-Care 01 Condition: Good Clinical Impression: Abrasion of ear canal - Discharge Information Referrals: PCP,None [Primary Care Provider] - Forms: ED Department Discharge Additional Instructions: The following information is given to patients seen in the emergency department who are being discharged to home. This information is to outline your options for follow-up care. We provide all patients seen in our emergency department with a follow-up referral. The need for follow-up, as well as the timing and circumstances, are variable depending upon the specifics of your emergency department visit. If you don't have a primary care physician on staff, we will provide you with a referral. We always advise you to contact your personal physician following an emergency department visit to inform them of the circumstance of the visit and for follow-up with them and/or the need for any referrals to a consulting specialist. The emergency department will also refer you to a specialist when appropriate. This referral assures that you have the opportunity for follow-up care with a specialist. All of these measure are taken in an effort to provide you with optimal care, which includes your follow-up. Under all circumstances we always encourage you to contact your private physician who remains a resource for coordinating your care. When calling for follow-up care, please make the office aware that this follow-up is from your recent emergency room visit. If for any reason you are refused follow-up, please contact the [facility] Emergency Department at and asked to speak to the emergency department charge nurse. [facility] Primary Care [address] [place] [address] [place] [address] Follow up with primary care provider Return to ED as needed as discussed Sepsis Event Note - Evaluation Sepsis Screening Result: No Definite Risk - Focused Exam Vital Signs: Vital Signs Temp Pulse Resp BP Pulse Ox 03/30/20 21:32 96.9 F 54 L 18 147/76 H 96 Date Exam was Performed: 03/30/20 Time Exam was Performed: 21:48
== END 2020-03-30 22:00 | disposition home or self-care (01) ==
LOC: MW.ED 21:17
DX: S00.411A Abrasion of right ear, initial encounter (principal); I10 Essential (primary) hypertension; Z79.899 Other long term (current) drug therapy; W22.8XXA Striking against or struck by other objects, initial encounter
CPT/HCPCS: 99282

== ENCOUNTER 2020-07-31 21:06 | Emergency (ER) | payer SELFPAY ==
[2020-07-31] MEDS ORDERED: Sodium Chloride 0.9% 10 ML Syringe FLUSH PRN (21:27)
[2020-07-31] MEDS ORDERED: Sodium Chloride 0.9% 2.5 ML Syringe FLUSH PRN (21:27)
--- NOTE | 2020-07-31 21:33 | EDM.PDOC ---
<Osman Cristina - Last Filed: 08/01/20 04:32> ED HPI GENERAL MEDICAL PROBLEM - General Chief Complaint: General Stated Complaint: LEG SWELLING AND DIZZINESS Time Seen by Provider: 07/31/20 21:19 - Related Data Allergies Allergy/AdvReac Type Severity Reaction Status Date / Time No Known Allergies Allergy Verified 07/31/20 21:09 Home Meds: Home Meds Losartan/Hydrochlorothiazide [Losartan-HCTZ 50-12.5 MG] 1 tab PO DAILY 07/31/20 [History] Metoprolol Succinate [Toprol XL] 25 mg PO DAILY 07/31/20 [History] ED ROS GENERAL - Review of Systems Review Of Systems: See Below ED EXAM, GENERAL - Physical Exam Exam: See Below Course - Vital Signs Text/Narrative:: I assumed care of this patient and I handed hours from SWAPNA Gallardo. In brief, this is a 49-year-old male with past medical history of hypertension presenting with lower extremity edema. He has a subacute history of several months of waking up short of breath in the middle of the night, concerning for paroxysmal nocturnal dyspnea. He reportedly had an outpatient sleep study ordered that that did not go to. He presents emergency department today complaining of persistent lower extremity edema and itching to the lower extremities. Complains of worsening lower extremity edema over the past few days. Vital signs show mild hypertension. Normal heart rate and oxygen saturation respiratory rate. CBC shows normal cell lines. Metabolic panel shows mild hyperglycemia. Normal renal function. Negative troponin, BNP. Normal TSH. Urinalysis shows no findings. Chest x-ray is clear by my read, no infiltrate, no pneumothorax, borderline cardiomegaly. Chest x-ray is clear by radiology read. Patient's work-up is reassuring. There is no objective evidence of myocardial infarction, no overt evidence of systolic congestive heart failure, hypothyroidism, renal, or kidney disease contributing to the lower extremity edema. I have no suspicion for DVT at this time given that the lower extremity swelling is symmetric and the patient denies any lower extremity pain, chest pain, or shortness of breath. I suspect that he has undiagnosed diastolic heart failure. I did recommend that he follow-up with his safe and vault service mechanic in the next 1 to 2 weeks for reevaluation. I think he will need an echocardiogram to evaluate his cardiac function. We also discussed that he needs to have his sleep study performed as ordered. I counseled him to continue his existing antihypertensive medications and follow-up closely with his safe and vault service mechanic in the next 1 to 2 weeks for further work-up of the lower extremity edema. There is no indication of an emergent medical condition or systolic heart failure exacerbation that warrants admission to the hospital this point. We did discuss symptomatic treatment of the itching including Benadryl lotion, calamine lotion, and xrdm-gai-bdnithu antihistamine medications including Zyrtec and Claritin. We discussed elevating his legs and reducing his sodium intake. Plan: Patient is stable to discharge home with outpatient cardiology clinic follow-up. Strict emergency department return precautions were provided, patient indicated understanding. All questions were answered prior to departure. Discharged in good condition. Departure - Departure Time of Disposition: 00:26 Disposition: Home, Self-Care 01 Condition: Good Clinical Impression: Bilateral lower extremity edema - Discharge Information *PRESCRIPTION DRUG MONITORING PROGRAM REVIEWED*: Not Applicable *COPY OF PRESCRIPTION DRUG MONITORING REPORT IN PATIENT BERE: Not Applicable Instructions: Edema, [id number] Referrals: Ghassan Khan MD [Physician] - 1 Week (For reevaluation of lower extremity swelling.) Forms: ED Department Discharge Additional Instructions: You were seen in the emergency department for leg swelling. I believe your leg swelling is due to new onset congestive heart failure, which could be caused by your high blood pressure. There is no evidence of fluid in your lungs or a heart attack that would cause us to need to admit you to the hospital tonight. I would like for you to follow-up with your safe and vault service mechanic in the next 1 to 2 weeks for reevaluation. I think you will probably need to have an echocardiogram, or ultrasound, performed of your heart to evaluate how it is working. Continue taking your high blood pressure medications as prescribed by your doctors. Warning signs to come back to the ER include chest pain, shortness of breath, or any other new or concerning symptoms. For the itching in your legs you can take Benadryl cream, use calamine lotion, or take [id number] Zyrtec or Claritin. Those medications are all available without a prescription. Please return the emergency department immediately if your symptoms worsen or if you feel worse. Thank you for choosing the [facility] emergency department in [place] for your medical needs today. It was a pleasure caring for you. The following information is given to patients seen in the emergency department who are being discharged. This information is to outline your options for follow-up care. We provide all patients seen in our emergency department with a follow-up referral. The need for follow-up, as well as the timing and circumstances, are variable depending upon the specifics of your emergency department visit. If you don't have a primary care physician on staff, we will provide you with a referral. We always advise you to contact your personal physician following an emergency department visit to inform them of the circumstance of the visit and for follow-up with them and/or the need for any referrals to a consulting specialist. The emergency department will also refer you to a specialist when appropriate. This referral assures that you have the opportunity for follow-up care with a specialist. All of these measure are taken in an effort to provide you with optimal care, which includes your follow-up. Under all circumstances we always encourage you to contact your private physician who remains a resource for coordinating your care. When calling for follow-up care, please make the office aware that this follow-up is from your recent emergency room visit. If for any reason you are refused follow-up, please contact the [facility] Emergency Department at and asked to speak to the emergency department charge nurse. If you do not have a primary care physician that is caring for you, you can contact these clinics below to set up an appointment to establish care: [facility] - Primary Care [address] [place] [address] [id number] [address] [address] <Dominic Gallardo E - Last Filed: 08/01/20 14:09> ED HPI GENERAL MEDICAL PROBLEM - General Source of Information: Reports: Patient History Limitations: Reports: No Limitations - History of Present Illness INITIAL COMMENTS - FREE TEXT/NARRATIVE: HISTORY AND PHYSICAL: History of present illness: Patient is a 49-year-old male who presents to the emergency room with complaints of bilateral lower extremity swelling and itching. Patient states approximately a month ago he had a sleep study ordered as an outpatient but failed to attend this appointment. This was ordered due to concern of sleep apnea as he was waking up several times each night "gasping for air". He noticed this to be when he would be lying flat. He states this continues to bother him and experiences this almost nightly. 2 days ago he noticed his feet and ankles were swollen and that the skin was very "itchy" to bilateral lower extremities. He denies any chemical exposures, bug/tick bites, or other known sources that would cause this. He does take medication for high blood pressure, one of which is a combination medication with HCTZ. Patient reports he thinks the diuretic is not enough to get rid of the excess fluid. Patient denies any fever, chills, headache, change in vision, syncope or near syncope. Denies any chest pain, back pain, cough or hemoptysis. Denies any abdominal pain, nausea, vomiting, diarrhea, constipation or dysuria. Has not noted any blood in urine or stool. Patient has been eating and drinking appropriately. Japanese speaking - [employer] translation services offered Review of systems: As per history of present illness and below otherwise all systems reviewed and negative. Past medical history: As per history of present illness and as reviewed below otherwise noncontributory. Surgical history: As per history of present illness and as reviewed below otherwise noncontributory. Social history: See social history for further information Family history: As per history of present illness and as reviewed below otherwise noncontributory. Physical exam: General: Well developed and well nourished 49-year-old male. Alert and orientated x 3. Nontoxic in appearance and in no acute distress. Vital signs are stable and have been reviewed by me. Nursing notes were reviewed. Patient is accompanied by his brother who is his preferred signal maintainer, Japanese-speaking. HEENT: Atraumatic, normocephalic, pupils equal and reactive bilaterally, negative for conjunctival pallor or scleral icterus, mucous membranes moist, TMs normal bilaterally, throat clear, neck supple, nontender, trachea midline. No drooling or trismus noted. No meningeal signs. No hot potato voice noted. Lungs: Slightly diminished otherwise clear to auscultation, breath sounds equal bilaterally, chest nontender. Normal work of breathing, no accessory muscles used. Heart: S1S2, regular rate and rhythm without overt murmur Abdomen: Soft, obese, nontender. Negative for masses or costovertebral tenderness. Pelvis: Stable nontender. Skin: Slight/faint redness to anterior shins bilaterally. Otherwise skin is intact, warm, dry. No lesions or rashes noted. Hematologic: No petechiae or purpra. Mucosa appropriate color and normal nail bed color and refill. Extremities: Atraumatic, moves all extremities per self without difficulty or deficits, negative for cords or calf pain. Strong pedal/pretibial pulses. +2 pitting edema to bilateral LE. Neurovascular unremarkable. Neuro: Awake, alert, oriented. Cranial nerves II through XII unremarkable. Cerebellum unremarkable. Motor and sensory unremarkable throughout. Exam nonfocal. Notes: Diagnostic results are pending. Patient is nontoxic in appearance, VSS. Dr Cristina, attending physician was informed of this patient and has assumed care of this patient at 2200 - he will follow, treat and disposition patient appr opriately. Diagnostics: CBC, CMP, UA, TSH, Troponin, EKG, CXR Therapeutics: SL Definitive disposition and diagnosis as appropriate pending reevaluation and review of above. BLE Pain Score (Numeric/FACES): 9 Past Medical History - Past Health History Medical/Surgical History: Denies Medical/Surgical History HEENT History: Reports: None Cardiovascular History: Reports: Hypertension Other Cardiovascular History: irregular heart rate Respiratory History: Reports: None, Sleep Apnea Other Respiratory History: needs sleep study and machine Gastrointestinal History: Reports: None Genitourinary History: Reports: None Musculoskeletal History: Reports: None Neurological History: Reports: None Psychiatric History: Reports: None Endocrine/Metabolic History: Reports: None Hematologic History: Reports: None Immunologic History: Reports: None Oncologic (Cancer) History: Reports: None Dermatologic History: Reports: None - Past Surgical History Head Surgeries/Procedures: Reports: None HEENT Surgical History: Reports: None Cardiovascular Surgical History: Reports: None Respiratory Surgical History: Reports: None GI Surgical History: Reports: None Male Surgical History: Reports: None Endocrine Surgical History: Reports: None Neurological Surgical History: Reports: None Musculoskeletal Surgical History: Reports: None Oncologic Surgical History: Reports: None Dermatological Surgical History: Reports: None Social & Family History - Family History Family Medical History: Noncontributory - Caffeine Use Caffeine Use: Reports: Tea - Recreational Drug Use Recreational Drug Use: No Course - Vital Signs Last Recorded V/S: Last Vital Signs Temp 96.2 F L 07/31/20 21:14 Pulse 57 L 07/31/20 23:45 Resp 17 07/31/20 23:45 BP 128/68 07/31/20 23:45 Pulse Ox 95 07/31/20 23:45 - Orders/Labs/Meds Orders: Active Orders 24 hr Category Date Time Status Saline Lock Insert [OM.PC] Stat Oth 07/31/20 21:27 Ordered Labs: Laboratory Tests 07/31/20 07/31/20 07/31/20 Range/Units 21:37 21:37 21:37 WBC 6.01 (4.0-11.0) K/uL RBC 5.30 (4.50-5.90) M/uL Hgb 15.9 (13.0-17.0) g/dL Hct 46.8 (38.0-50.0) % MCV 88.3 (80.0-98.0) fL MCH 30.0 (27.0-32.0) pg MCHC 34.0 (31.0-37.0) g/dL RDW Std Deviation 43.0 (28.0-62.0) fl RDW Coeff of Bora 13 (11.0-15.0) % Plt Count 195 (150-400) K/uL MPV 11.00 (7.40-12.00) fL Neut % (Auto) 46.9 L (48.0-80.0) % Lymph % (Auto) 34.9 (16.0-40.0) % [place] % (Auto) 10.3 (0.0-15.0) % Eos % (Auto) 7.7 H (0.0-7.0) % Baso % (Auto) 0.2 (0.0-1.5) % Neut # (Auto) 2.8 (1.4-5.7) K/uL Lymph # (Auto) 2.1 (0.6-2.4) K/uL [place] # (Auto) 0.6 (0.0-0.8) K/uL Eos # (Auto) 0.5 (0.0-0.7) K/uL Baso # (Auto) 0.0 (0.0-0.1) K/uL Nucleated RBC % 0.0 /100WBC Nucleated RBCs # 0 K/uL Sodium 139 (136-148) mmol/L Potassium 3.6 (3.5-5.1) mmol/L Chloride 103 (98-107) mmol/L Carbon Dioxide 25.2 (21.0-32.0) mmol/L BUN 16 (7.0-18.0) mg/dL Creatinine 1.1 (0.8-1.3) mg/dL Est Cr Clr Drug Dosing 81.23 mL/min Estimated GFR (MDRD) > 60.0 ml/min Glucose 121 H (74-106) mg/dL Calcium 9.3 (8.5-10.1) mg/dL Total Bilirubin 0.5 (0.2-1.0) mg/dL AST 25 (15-37) IU/L ALT 40 (14-63) IU/L Alkaline Phosphatase 65 (46-116) U/L Troponin I < 0.050 (0.000-0.056) ng/mL B-Natriuretic Peptide 13 (<100) PG/ML Total Protein 7.2 (6.4-8.2) g/dL Albumin 3.7 (3.4-5.0) g/dL Globulin 3.5 (2.6-4.0) g/dL Albumin/Globulin Ratio 1.1 (0.9-1.6) TSH 3rd Generation 1.70 (0.36-3.74) uIU/mL Urine Color Urine Appearance Urine pH (5.0-8.0) Ur Specific Brandon (1.001-1.035) Urine Protein (NEGATIVE) mg/dL Urine Glucose (UA) (NEGATIVE) mg/dL Urine Ketones (NEGATIVE) mg/dL Urine Occult Blood (NEGATIVE) Urine Nitrite (NEGATIVE) Urine Bilirubin (NEGATIVE) Urine Urobilinogen (<2.0) EU/dL Ur Leukocyte Esterase (NEGATIVE) 07/31/20 Range/Units 21:40 WBC (4.0-11.0) K/uL RBC (4.50-5.90) M/uL Hgb (13.0-17.0) g/dL Hct (38.0-50.0) % MCV (80.0-98.0) fL MCH (27.0-32.0) pg MCHC (31.0-37.0) g/dL RDW Std Deviation (28.0-62.0) fl RDW Coeff of Bora (11.0-15.0) % Plt Count (150-400) K/uL MPV (7.40-12.00) fL Neut % (Auto) (48.0-80.0) % Lymph % (Auto) (16.0-40.0) % [place] % (Auto) (0.0-15.0) % Eos % (Auto) (0.0-7.0) % Baso % (Auto) (0.0-1.5) % Neut # (Auto) (1.4-5.7) K/uL Lymph # (Auto) (0.6-2.4) K/uL [place] # (Auto) (0.0-0.8) K/uL Eos # (Auto) (0.0-0.7) K/uL Baso # (Auto) (0.0-0.1) K/uL Nucleated RBC % /100WBC Nucleated RBCs # K/uL Sodium (136-148) mmol/L Potassium (3.5-5.1) mmol/L Chloride (98-107) mmol/L Carbon Dioxide (21.0-32.0) mmol/L BUN (7.0-18.0) mg/dL Creatinine (0.8-1.3) mg/dL Est Cr Clr Drug Dosing mL/min Estimated GFR (MDRD) ml/min Glucose (74-106) mg/dL Calcium (8.5-10.1) mg/dL Total Bilirubin (0.2-1.0) mg/dL AST (15-37) IU/L ALT (14-63) IU/L Alkaline Phosphatase (46-116) U/L Troponin I (0.000-0.056) ng/mL B-Natriuretic Peptide (<100) PG/ML Total Protein (6.4-8.2) g/dL Albumin (3.4-5.0) g/dL Globulin (2.6-4.0) g/dL Albumin/Globulin Ratio (0.9-1.6) TSH 3rd Generation (0.36-3.74) uIU/mL Urine Color YELLOW Urine Appearance CLEAR Urine pH 6.0 (5.0-8.0) Ur Specific Brandon 1.015 (1.001-1.035) Urine Protein NEGATIVE (NEGATIVE) mg/dL Urine Glucose (UA) NEGATIVE (NEGATIVE) mg/dL Urine Ketones NEGATIVE (NEGATIVE) mg/dL Urine Occult Blood NEGATIVE (NEGATIVE) Urine Nitrite NEGATIVE (NEGATIVE) Urine Bilirubin NEGATIVE (NEGATIVE) Urine Urobilinogen 0.2 (<2.0) EU/dL Ur Leukocyte Esterase NEGATIVE (NEGATIVE) Meds: Medications Discontinued Medications Generic Name Dose Route Start Last Admin Trade Name Freq PRN Reason Stop Dose Admin Sodium Chloride 10 ml 07/31/20 21:27 Saline Flush FLUSH ASDIRECTED PRN Keep Vein Open Sodium Chloride 2.5 ml 07/31/20 21:27 Saline Flush FLUSH ASDIRECTED PRN Keep Vein Open Sepsis Event Note (ED) - Evaluation Sepsis Screening Result: No Definite Risk - My Orders Last 24 Hours: My Active Orders 07/31/20 21:27 Saline Lock Insert [OM.PC] Stat - Assessment/Plan Last 24 Hours: My Active Orders 07/31/20 21:27 Saline Lock Insert [OM.PC] Stat
[2020-07-31 22:16] LABS: BLOOD UREA NITROGEN,BUN 16 mg/dL (7.0-18.0); CARBON DIOXIDE,CO2 25.2 mmol/L (21.0-32.0); CHLORIDE,CL 103 mmol/L (98-107); GLUCOSE RANDOM 121 mg/dL (74-106); POTASSIUM,K 3.6 mmol/L (3.5-5.1); SODIUM,NA 139 mmol/L (136-148)
--- NOTE | 2020-08-01 00:04 | CR ---
Indication: Pulmonary edema Technique: Chest 1 view Comparison: None Findings/Impression: Cardiovascular and mediastinum: Heart size and vasculature are normal in caliber and appearance. Lungs and pleural space: Lungs are clear. No sign of infiltrate or mass. No sign of pleural effusion. No pneumothorax. Bones and soft tissues: No acute findings. Dictated by Phill Salvador MD @ Jul 31 2020 10:37PM (Electronically Signed)
== END 2020-08-01 00:44 | disposition home or self-care (01) ==
LOC: MW.ED 21:06
DX: R60.0 Localized edema (principal); L29.9 Pruritus, unspecified; I10 Essential (primary) hypertension; Z79.899 Other long term (current) drug therapy
CPT/HCPCS: 36415; 71045; 71045-26; 80053; 81003; 83880; 84443; 84484; 85025; 93005; 99284-25

== ENCOUNTER 2020-08-06 21:22 | Emergency (ER) | payer SELFPAY ==
[2020-08-06] MEDS ORDERED: Sodium Chloride 0.9% 10 ML Syringe FLUSH PRN (22:42)
[2020-08-06] MEDS ORDERED: Sodium Chloride 0.9% 2.5 ML Syringe FLUSH PRN (22:42)
[2020-08-06] MEDS ORDERED: Furosemide 40 MG/4 ML VIAL IVPUSH ONE (22:44)
--- NOTE | 2020-08-06 23:45 | CR ---
INDICATION: peripheral edema, occasional SOB TECHNIQUE: Chest 2 views. COMPARISON: 07/31/20 FINDINGS: Cardiovascular and mediastinum: Heart size and vasculature are normal in caliber and appearance. Mediastinum is within normal limits. Lungs and pleural spaces: Lungs are clear. No sign of infiltrate or mass. No sign of pleural effusion. No pneumothorax. Bones and soft tissues: No significant findings. IMPRESSION: Unremarkable chest. Dictated by: Boby Chaves MD @ 08/06/2020 23:44:26 (Electronically Signed)
--- NOTE | 2020-08-07 00:02 | US ---
INDICATION: Lower extremity edema TECHNIQUE: Ultrasound venous duplex lower left extremity. Compression venous exam was performed using christianson-scale, color Doppler, and spectral Doppler analysis. COMPARISON: None FINDINGS: Sonographic imaging demonstrates the left common femoral, deep femoral, superficial femoral, popliteal, posterior tibial and greater saphenous veins to be fully compressible with normal color Doppler blood flow. Edema adjacent to the ankle. IMPRESSION: No evidence of deep venous thrombosis left lower extremity. Edema adjacent to the ankle. Dictated by Boby Chaves MD @ 08/06/2020 11:59:37 PM Dictated by: Boby Chaves MD @ 08/06/2020 23:59:43 (Electronically Signed)
[2020-08-07 00:29] LABS: BLOOD UREA NITROGEN,BUN 17 mg/dL (7.0-18.0); CARBON DIOXIDE,CO2 27.7 mmol/L (21.0-32.0); CHLORIDE,CL 107 mmol/L (98-107); GLUCOSE RANDOM 92 mg/dL (74-106); POTASSIUM,K 3.9 mmol/L (3.5-5.1); SODIUM,NA 142 mmol/L (136-148)
--- NOTE | 2020-08-07 01:04 | EDM.PDOC ---
ED HPI GENERAL MEDICAL PROBLEM - General Chief Complaint: General Stated Complaint: LT HAND AND LEG PAIN Time Seen by Provider: 08/06/20 22:33 - History of Present Illness INITIAL COMMENTS - FREE TEXT/NARRATIVE: HISTORY AND PHYSICAL: History of present illness: This is a 49-year-old gentleman with a history significant for hypertension who presents the ER today secondary to left lower extremity swelling as well as some swelling to his left upper extremity. Patient reports that he noticed that earlier today. Patient reports that he has had edema to his lower extremities in the past and was seen and evaluated here proximally 1 week ago but was told it was probably from too much fluid on board. Patient reports that he has been try to keep his legs elevated without significant relief. Patient does take a diuretic and thinks it is not strong enough. Patient denies any history of diabetes, liver, lung, kidney, OR, CHF, PE, DVT. Patient denies any tobacco alcohol or drugs. Patient has no known drug allergies. Patient denies any abdominal or chest surgeries in the past. Patient has any recent fevers, shakes, chills, nausea, vomiting, diarrhea, dysuria, frequency, urgency, shortness of breath, cough, URI symptoms. Patient denies any orthopnea, PND, dyspnea on exertion. Patient reports that his legs are so swollen that he had to cut his shoes in order to get his feet into them. Review of systems: As per history of present illness and below otherwise all systems reviewed and negative. Past medical history: As per history of present illness and as reviewed below otherwise noncontributory. Surgical history: As per history of present illness and as reviewed below otherwise noncontributory. Social history: No reported history of drug or alcohol abuse. Family history: As per history of present illness and as reviewed below otherwise noncontributory. Physical exam: HEENT: Atraumatic, normocephalic, pupils reactive, negative for conjunctival pallor or scleral icterus, mucous membranes moist, throat clear, neck supple, nontender, trachea midline. Lungs: Clear to auscultation, breath sounds equal bilaterally, chest nontender. Heart: S1S2, regular, negative for clicks, rubs, or JVD. Abdomen: Soft, nondistended, nontender. Negative for masses or hepatosplenomegaly. Negative for costovertebral tenderness. Pelvis: Stable nontender. Genitourinary: Deferred. Rectal: Deferred. Extremities: Atraumatic, negative for cords or calf pain. Neurovascular unremarkable. Neuro: Awake, alert, oriented. Cranial nerves II through XII unremarkable. Cerebellum unremarkable. Motor and sensory unremarkable throughout. Exam nonfocal. Patient's ER physical exam significant for significant swelling to his bilateral lower extremities however his left lower extremity does appear to be slightly more swollen than his right lower extremity. Patient's upper extremities appear to be equal bilaterally although the patient subjectively reports that his left upper forearm appears to be slightly more swollen than his right upper forearm. Patient has no JVD. Patient has no S3. Patient has no rales on exam. Patient does not show any overt signs of left-sided heart failure. Diagnostics: Ultrasound of his left lower extremity rule out DVT was obtained: Negative for DVT. Patient's BNP is within normal limits. Patient's urinalysis did not reveal any proteinuria. Patient CBC and CMP are within normal limits with normal renal function and normal LFTs. Therapeutics: Lasix 60 mg IV given in the ED. Patient reports that he has gone to the bathroom to urinate 4 times since Lasix has been given and feels much improved. Patient reports that the swelling has gone down significantly and that his legs now appear to be symmetric as well as his upper extremities. Assessment and plan: Lower extremity edema of unclear etiology. This is most likely secondary to dependent edema. Patient was given Lasix 60 mg IV in the ED and will be discharged home with a prescription for Lasix 40 mg once a day for 3 more days. Patient does have an appointment to see his primary care physician on August 12 at 9 AM at which time he was instructed to have a discussion with his doctor regarding long-term management of his peripheral edema. We have ruled out renal causes, DVT, liver disease as causes for his peripheral edema. Patient at this time is stable for further outpatient management of his peripheral edema. Reassessment at the time of disposition demonstrates that the patient is in no acute distress. The patient has remained stable throughout the entire ED visit and is without objective evidence for acute process requiring urgent intervention or hospitalization. The patient is stable for discharge, counseling is provided as documented above, discussed symptomatic treatment and specific conditions for return. I have spoken with the patient/caregive and discussed todays findings, in addition to providing specific details for the plan of care. Questions are answered and there is agreement with the plan. Definitive disposition and diagnosis as appropriate pending reevaluation and review of above. left hand Pain Score (Numeric/FACES): 8 - Related Data Allergies Allergy/AdvReac Type Severity Reaction Status Date / Time No Known Allergies Allergy Verified 08/06/20 21:35 Home Meds: Home Meds Losartan/Hydrochlorothiazide [Losartan-HCTZ 50-12.5 MG] 1 tab PO DAILY 07/31/20 [History] Metoprolol Succinate [Toprol XL] 25 mg PO DAILY 07/31/20 [History] Furosemide [Lasix] 40 mg PO DAILY #3 tab 08/07/20 [Rx] Potassium Chloride 20 meq PO BID #6 packet 08/07/20 [Rx] Past Medical History - Past Health History Medical/Surgical History: Denies Medical/Surgical History HEENT History: Reports: None Cardiovascular History: Reports: Hypertension Other Cardiovascular History: irregular heart rate Respiratory History: Reports: None, Sleep Apnea Other Respiratory History: needs sleep study and machine Gastrointestinal History: Reports: None Genitourinary History: Reports: None Musculoskeletal History: Reports: None Neurological History: Reports: None Psychiatric History: Reports: None Endocrine/Metabolic History: Reports: None Hematologic History: Reports: None Immunologic History: Reports: None Oncologic (Cancer) History: Reports: None Dermatologic History: Reports: None - Past Surgical History Head Surgeries/Procedures: Reports: None HEENT Surgical History: Reports: None Cardiovascular Surgical History: Reports: None Respiratory Surgical History: Reports: None GI Surgical History: Reports: None Male Surgical History: Reports: None Endocrine Surgical History: Reports: None Neurological Surgical History: Reports: None Musculoskeletal Surgical History: Reports: None Oncologic Surgical History: Reports: None Dermatological Surgical History: Reports: None Social & Family History - Family History Family Medical History: Noncontributory - Tobacco Use Smoking Status *Q: Never Smoker - Caffeine Use Caffeine Use: Reports: Tea - Recreational Drug Use Recreational Drug Use: No ED ROS GENERAL - Review of Systems Review Of Systems: See Below ED EXAM, GENERAL - Physical Exam Exam: See Below Course - Vital Signs Last Recorded V/S: Last Vital Signs Temp 97.2 F 08/06/20 21:31 Pulse 48 L 08/06/20 21:31 Resp 16 08/06/20 21:31 BP 140/77 08/06/20 21:31 Pulse Ox 96 08/06/20 21:31 - Orders/Labs/Meds Orders: Active Orders 24 hr Category Date Time Status Sodium Chloride 0.9% [Saline Flush] Med 08/06/20 22:42 Active 10 ml FLUSH ASDIRECTED PRN Sodium Chloride 0.9% [Saline Flush] Med 08/06/20 22:42 Active 2.5 ml FLUSH ASDIRECTED PRN Saline Lock Insert [OM.PC] Stat Oth 08/06/20 22:42 Ordered Medication Orders Sodium Chloride (Saline Flush) 10 ml FLUSH ASDIRECTED PRN PRN Reason: Keep Vein Open Sodium Chloride (Saline Flush) 2.5 ml FLUSH ASDIRECTED PRN PRN Reason: Keep Vein Open Labs: Laboratory Tests 08/06/20 08/06/20 08/06/20 Range/Units 23:00 23:58 23:58 WBC 7.30 (4.0-11.0) K/uL RBC 5.17 (4.50-5.90) M/uL Hgb 15.3 (13.0-17.0) g/dL Hct 46.3 (38.0-50.0) % MCV 89.6 (80.0-98.0) fL MCH 29.6 (27.0-32.0) pg MCHC 33.0 (31.0-37.0) g/dL RDW Std Deviation 44.3 (28.0-62.0) fl RDW Coeff of [place] 14 (11.0-15.0) % Plt Count 183 (150-400) K/uL MPV 10.90 (7.40-12.00) fL Neut % (Auto) 49.5 (48.0-80.0) % Lymph % (Auto) 30.8 (16.0-40.0) % [place] % (Auto) 13.3 (0.0-15.0) % Eos % (Auto) 6.3 (0.0-7.0) % Baso % (Auto) 0.1 (0.0-1.5) % Neut # (Auto) 3.6 (1.4-5.7) K/uL Lymph # (Auto) 2.3 (0.6-2.4) K/uL [place] # (Auto) 1.0 H (0.0-0.8) K/uL Eos # (Auto) 0.5 (0.0-0.7) K/uL Baso # (Auto) 0.0 (0.0-0.1) K/uL Nucleated RBC % 0.0 /100WBC Nucleated RBCs # 0 K/uL Sodium 142 (136-148) mmol/L Potassium 3.9 (3.5-5.1) mmol/L Chloride 107 (98-107) mmol/L Carbon Dioxide 27.7 (21.0-32.0) mmol/L BUN 17 (7.0-18.0) mg/dL Creatinine 1.1 (0.8-1.3) mg/dL Est Cr Clr Drug Dosing 91.80 mL/min Estimated GFR (MDRD) > 60.0 ml/min Glucose 92 (74-106) mg/dL Calcium 7.9 L (8.5-10.1) mg/dL Total Bilirubin 0.4 (0.2-1.0) mg/dL AST 27 (15-37) IU/L ALT 39 (14-63) IU/L Alkaline Phosphatase 76 (46-116) U/L Troponin I < 0.050 (0.000-0.056) ng/mL B-Natriuretic Peptide (<100) PG/ML Total Protein 7.0 (6.4-8.2) g/dL Albumin 3.7 (3.4-5.0) g/dL Globulin 3.3 (2.6-4.0) g/dL Albumin/Globulin Ratio 1.1 (0.9-1.6) Urine Color YELLOW Urine Appearance CLEAR Urine pH 6.0 (5.0-8.0) Ur Specific [place] >= 1.030 (1.001-1.035) Urine Protein NEGATIVE (NEGATIVE) mg/dL Urine Glucose (UA) NEGATIVE (NEGATIVE) mg/dL Urine Ketones NEGATIVE (NEGATIVE) mg/dL Urine Occult Blood NEGATIVE (NEGATIVE) Urine Nitrite NEGATIVE (NEGATIVE) Urine Bilirubin NEGATIVE (NEGATIVE) Urine Urobilinogen 0.2 (<2.0) EU/dL Ur Leukocyte Esterase NEGATIVE (NEGATIVE) 08/06/20 Range/Units 23:58 WBC (4.0-11.0) K/uL RBC (4.50-5.90) M/uL Hgb (13.0-17.0) g/dL Hct (38.0-50.0) % MCV (80.0-98.0) fL MCH (27.0-32.0) pg MCHC (31.0-37.0) g/dL RDW Std Deviation (28.0-62.0) fl RDW Coeff of Bora (11.0-15.0) % Plt Count (150-400) K/uL MPV (7.40-12.00) fL Neut % (Auto) (48.0-80.0) % Lymph % (Auto) (16.0-40.0) % [place] % (Auto) (0.0-15.0) % Eos % (Auto) (0.0-7.0) % Baso % (Auto) (0.0-1.5) % Neut # (Auto) (1.4-5.7) K/uL Lymph # (Auto) (0.6-2.4) K/uL [place] # (Auto) (0.0-0.8) K/uL Eos # (Auto) (0.0-0.7) K/uL Baso # (Auto) (0.0-0.1) K/uL Nucleated RBC % /100WBC Nucleated RBCs # K/uL Sodium (136-148) mmol/L Potassium (3.5-5.1) mmol/L Chloride (98-107) mmol/L Carbon Dioxide (21.0-32.0) mmol/L BUN (7.0-18.0) mg/dL Creatinine (0.8-1.3) mg/dL Est Cr Clr Drug Dosing mL/min Estimated GFR (MDRD) ml/min Glucose (74-106) mg/dL Calcium (8.5-10.1) mg/dL Total Bilirubin (0.2-1.0) mg/dL AST (15-37) IU/L ALT (14-63) IU/L Alkaline Phosphatase (46-116) U/L Troponin I (0.000-0.056) ng/mL B-Natriuretic Peptide 32 (<100) PG/ML Total Protein (6.4-8.2) g/dL Albumin (3.4-5.0) g/dL Globulin (2.6-4.0) g/dL Albumin/Globulin Ratio (0.9-1.6) Urine Color Urine Appearance Urine pH (5.0-8.0) Ur Specific [place] (1.001-1.035) Urine Protein (NEGATIVE) mg/dL Urine Glucose (UA) (NEGATIVE) mg/dL Urine Ketones (NEGATIVE) mg/dL Urine Occult Blood (NEGATIVE) Urine Nitrite (NEGATIVE) Urine Bilirubin (NEGATIVE) Urine Urobilinogen (<2.0) EU/dL Ur Leukocyte Esterase (NEGATIVE) Meds: Medications Generic Name Dose Route Start Last Admin Trade Name Freq PRN Reason Stop Dose Admin Sodium Chloride 10 ml 08/06/20 22:42 Saline Flush FLUSH ASDIRECTED PRN Keep Vein Open Sodium Chloride 2.5 ml 08/06/20 22:42 Saline Flush FLUSH ASDIRECTED PRN Keep Vein Open Discontinued Medications Generic Name Dose Route Start Last Admin Trade Name Freq PRN Reason Stop Dose Admin Furosemide 60 mg 08/06/20 22:44 08/07/20 00:01 Lasix IVPUSH 08/06/20 22:45 60 mg NOW ONE Administration Departure - Departure Time of Disposition: 01:03 Disposition: Home, Self-Care 01 Condition: Good Clinical Impression: Peripheral edema - Discharge Information Instructions: Peripheral Edema Referrals: PCP,None [Primary Care Provider] - Additional Instructions: You were seen and evaluated in the ER today secondary to the swelling in your left lower extremity as well as your left upper extremity. The work-up in the ED has been unremarkable. You will be given a prescription for Lasix 40 mg once a day for 3 more days. Please keep your appointment with your primary care physician on August 12 to discuss further management and concerns regarding your lower extremity swelling. The following information is given to patients seen in the emergency department who are being discharged to home. This information is to outline your options for follow-up care. We provide all patients seen in our emergency department with a follow-up referral. The need for follow-up, as well as the timing and circumstances, are variable depending upon the specifics of your emergency department visit. If you don't have a primary care physician on staff, we will provide you with a referral. We always advise you to contact your personal physician following an emergency department visit to inform them of the circumstance of the visit and for follow-up with them and/or the need for any referrals to a consulting specialist. The emergency department will also refer you to a specialist when appropriate. This referral assures that you have the opportunity for follow-up care with a specialist. All of these measure are taken in an effort to provide you with optimal care, which includes your follow-up. Under all circumstances we always encourage you to contact your private physician who remains a resource for coordinating your care. When calling for follow-up care, please make the office aware that this follow-up is from your recent emergency room visit. If for any reason you are refused follow-up, please contact the [facility] Emergency Department at and asked to speak to the emergency department charge nurse. Sepsis Event Note (ED) - Evaluation Sepsis Screening Result: No Definite Risk - Focused Exam Vital Signs: Vital Signs Temp Pulse Resp BP Pulse Ox 08/06/20 21:31 97.2 F 48 L 16 140/77 96 - My Orders Last 24 Hours: My Active Orders 08/06/20 22:42 Sodium Chloride 0.9% [Saline Flush] 10 ml FLUSH ASDIRECTED PRN Sodium Chloride 0.9% [Saline Flush] 2.5 ml FLUSH ASDIRECTED PRN Saline Lock Insert [OM.PC] Stat - Assessment/Plan Last 24 Hours: My Active Orders 08/06/20 22:42 Sodium Chloride 0.9% [Saline Flush] 10 ml FLUSH ASDIRECTED PRN Sodium Chloride 0.9% [Saline Flush] 2.5 ml FLUSH ASDIRECTED PRN Saline Lock Insert [OM.PC] Stat
== END 2020-08-07 01:15 | disposition home or self-care (01) ==
LOC: MW.ED 21:22
DX: R60.0 Localized edema (principal); I10 Essential (primary) hypertension; Z79.899 Other long term (current) drug therapy
CPT/HCPCS: 36415; 71046; 80053; 81003; 83880; 84484; 85025; 93971; 96374; 99284; J1940; 99283

== ENCOUNTER 2021-03-25 22:33 | Emergency (ER) | payer SELFPAY ==
[2021-03-25] MEDS ORDERED: Acetaminophen/HYDROcodone 325-5 MG Tab PO ONE (22:59)
--- NOTE | 2021-03-25 23:02 | EDM.PDOC ---
ED HPI GENERAL MEDICAL PROBLEM - General Chief Complaint: Lower Extremity Injury/Pain Stated Complaint: LT LEG PAIN Time Seen by Provider: 03/25/21 22:50 - History of Present Illness INITIAL COMMENTS - FREE TEXT/NARRATIVE: HISTORY AND PHYSICAL: History of present illness: This is a 50-year-old gentleman who presents ER today complaining of pain to his right knee secondary to a fall that occurred early this morning. Patient denies any head trauma or head injury. Patient reports he is able to weight-bear with pain. Patient has not taken any medicine for pain at home. Patient denies any history of diabetes, liver, lung problems. Patient reports that he does have a history of hypertension. He reports that he does take a diuretic secondary to swelling to his legs. Patient reports that he is on anticoagulant therapy because his blood is "too thick ". Patient denies any swelling or bleeding to his extremity after the fall. Patient reports that the pain is evening has gotten worse. Review of systems: As per history of present illness and below otherwise all systems reviewed and negative. Past medical history: As per history of present illness and as reviewed below otherwise noncontributory. Surgical history: As per history of present illness and as reviewed below otherwise noncontributory. Social history: No reported history of drug or alcohol abuse. Family history: As per history of present illness and as reviewed below otherwise noncontributory. Physical exam: This patient was seen and evaluated during the 2019 SARS-CoV-2 novel coronavirus pandemic period. Community viral transmission is ongoing at time of this encounter and the emergency department is operating under pandemic response procedures. Constitutional: Patient is oriented to person, place, and time. Appears well-developed and well-nourished. No distress. HEENT: Moist mucous membranes Head: Normocephalic and atraumatic Eyes: Right eye exhibits no discharge. Left eye exhibits no discharge. No scleral icterus Neck: Normal range of motion. No tracheal deviation present. Cardiovascular: Normal rate and regular rhythm. Pulmonary: Effort normal, no respiratory distress. Abdominal: No distention Musculoskeletal: Normal range of motion Neurologic: Alert and oriented to person, place and time. Skin: [place], warm and dry. Psychiatric: Normal mood and affect. Behavior is normal. Judgment and thought content normal. Nursing note and vital signs have been reviewed Patient has no C-spine T-spine or L-spine tenderness to palpation. Patient has no left upper or right upper quadrant tenderness to palpation. Patient has no crepitus to palpation to the anterior chest wall. Patient is neurologically intact. Patient does not present with any signs or or symptoms that would be consistent with acute intracranial, intra-abdominal, intrathoracic, or long bone injury. All long bones have been palpated and range of motion been performed and there is no evidence of any acute pathology. Patient's ER physical exam is significant for tenderness to palpation to his right patella. Patient has no deformity, minimal soft tissue swelling, no ecchymosis, no ligamentous laxity. Diagnostics: X-ray right knee No fracture dislocation identified on x-ray of the right knee. No effusion. Therapeutics: Tanana 5x1 Right knee immobilizer DME note: A right knee immobilizer and crutches is being ordered secondary to ligamentous injury from a fall. This will assist with mobilizing the ligaments of the knee to assist with healing. Assessment and plan: 50-year-old who presents ER today secondary to pain to his right knee after a fall. Patient lab and x-ray of his right knee. Patient be placed in a right knee immobilizer to assist with pain and discomfort. Patient be given Tanana 5/325 to assist with his pain and discomfort. X-rays negative for acute fracture. Patient will be placed in a knee immobilizer and given a prescription for Tanana to assist with his pain. Reassessment at the time of disposition demonstrates that the patient is in no acute distress. The patient has remained stable throughout the entire ED visit and is without objective evidence for acute process requiring urgent in tervention or hospitalization. The patient is stable for discharge, counseling is provided as documented above, discussed symptomatic treatment and specific conditions for return. I have spoken with the patient/caregiver and discussed todays findings, in addition to providing specific details for the plan of care. Questions are answered and there is agreement with the plan. Definitive disposition and diagnosis as appropriate pending reevaluation and review of above. Right Knee Pain Score (Numeric/FACES): 5 - Related Data Allergies Allergy/AdvReac Type Severity Reaction Status Date / Time No Known Allergies Allergy Verified 08/06/20 21:35 Home Meds: Home Meds Losartan/Hydrochlorothiazide [Losartan-HCTZ 50-12.5 MG] 1 tab PO DAILY 07/31/20 [History] Metoprolol Succinate [Toprol XL] 25 mg PO DAILY 07/31/20 [History] Furosemide [Lasix] 40 mg PO DAILY #3 tab 08/07/20 [Rx] Potassium Chloride 20 meq PO BID #6 packet 08/07/20 [Rx] Acetaminophen/HYDROcodone [Tanana 325-5 MG] 1 tab PO Q6H PRN #12 tablet 03/25/21 [Rx] Apixaban [Eliquis] 0 mg PO DAILY 03/25/21 [History] Past Medical History - Past Health History Medical/Surgical History: Denies Medical/Surgical History HEENT History: Reports: None Cardiovascular History: Reports: Hypertension Other Cardiovascular History: irregular heart rate Respiratory History: Reports: None, Sleep Apnea Other Respiratory History: needs sleep study and machine Gastrointestinal History: Reports: None Genitourinary History: Reports: None Musculoskeletal History: Reports: None Neurological History: Reports: None Psychiatric History: Reports: None Endocrine/Metabolic History: Reports: None Hematologic History: Reports: None Immunologic History: Reports: None Oncologic (Cancer) History: Reports: None Dermatologic History: Reports: None - Past Surgical History Head Surgeries/Procedures: Reports: None HEENT Surgical History: Reports: None Cardiovascular Surgical History: Reports: None Respiratory Surgical History: Reports: None GI Surgical History: Reports: None Male Surgical History: Reports: None Endocrine Surgical History: Reports: None Neurological Surgical History: Reports: None Musculoskeletal Surgical History: Reports: None Oncologic Surgical History: Reports: None Dermatological Surgical History: Reports: None Social & Family History - Family History Family Medical History: No Pertinent Family History - Caffeine Use Caffeine Use: Reports: Tea Review of Systems - Review of Systems Review Of Systems: See Below ED EXAM, GENERAL - Physical Exam Exam: See Below Course - Vital Signs Last Recorded V/S: Last Vital Signs Temp 97.5 F 03/25/21 22:46 Pulse 58 L 03/25/21 22:46 Resp 16 03/25/21 22:46 BP 132/62 03/25/21 22:46 Pulse Ox 100 03/25/21 22:46 - Orders/Labs/Meds Meds: Medications Discontinued Medications Generic Name Dose Route Start Last Admin Trade Name Freq PRN Reason Stop Dose Admin Hydrocodone Bitart/Acetaminophen 1 tab 03/25/21 22:59 03/25/21 23:04 Acetaminophen/Hydrocodone 325-5 Mg Tab PO 03/25/21 23:00 1 tab ONETIME ONE Administration Departure - Departure Time of Disposition: 23:37 Disposition: Home, Self-Care 01 Condition: Good Clinical Impression: Right knee pain Qualifiers: Chronicity: acute Qualified Code(s): M25.561 - Pain in right knee Right knee injury Qualifiers: Encounter type: initial encounter Qualified Code(s): S89.91XA - Unspecified injury of right lower leg, initial encounter - Discharge Information Prescriptions: Acetaminophen/HYDROcodone [Tanana 325-5 MG] 1 tab PO Q6H PRN #12 tablet PRN Reason: Pain Instructions: Crutch Use, Adult, [id number], Acute Knee Pain, Adult, How to Use a Knee Immobilizer, [id number] Referrals: PCP,Not In Area [Primary Care Provider] - Forms: ED Department Discharge Additional Instructions: You were seen and evaluated in the ER today secondary to pain to your right knee after a fall. Your x-ray is negative for any fractures. You will be given a prescription for Tanana and placed in a knee immobilizer and crutches to assist you with your pain. Please make an appointment to see your family doctor in the next week for reevaluation. The following information is given to patients seen in the emergency department who are being discharged to home. This information is to outline your options for follow-up care. We provide all patients seen in our emergency department with a follow-up referral. The need for follow-up, as well as the timing and circumstances, are variable depending upon the specifics of your emergency department visit. If you don't have a primary care physician on staff, we will provide you with a referral. We always advise you to contact your personal physician following an emergency department visit to inform them of the circumstance of the visit and for follow-up with them and/or the need for any referrals to a consulting specialist. The emergency department will also refer you to a specialist when appropriate. This referral assures that you have the opportunity for follow-up care with a specialist. All of these measure are taken in an effort to provide you with optimal care, which includes your follow-up. Under all circumstances we always encourage you to contact your private physician who remains a resource for coordinating your care. When calling for follow-up care, please make the office aware that this follow-up is from your recent emergency room visit. If for any reason you are refused follow-up, please contact the [facility] Emergency Department at and asked to speak to the emergency department charge nurse. [facility] [address] [place] [address] [id number] [address] [address] Sepsis Event Note (ED) - Evaluation Sepsis Screening Result: No Definite Risk
--- NOTE | 2021-03-25 23:36 | CR ---
Indication: Pain after fall Technique: Three views right knee Comparison: None Findings: Bones: Alignment is normal. No fractures or bone lesions. Joint spaces: Moderate medial joint space narrowing and minimal osteophyte formation. Soft tissues: Unremarkable. Impression: No acute abnormality. Moderate medial joint space degenerative changes. Dictated by María Gale MD @ 03/25/2021 11:34:[address] María Gale @ Mar 25 2021 11:34PM
== END 2021-03-26 00:02 | disposition home or self-care (01) ==
LOC: MW.ED 22:33
DX: S89.91XA Unspecified injury of right lower leg, initial encounter (principal); I10 Essential (primary) hypertension; Z79.01 Long term (current) use of anticoagulants; Z79.899 Other long term (current) drug therapy; W18.39XA Other fall on same level, initial encounter
CPT/HCPCS: 73562; 99283; A9270

== ENCOUNTER 2021-07-27 19:17 | Emergency (ER) | payer BC ==
--- NOTE | 2021-07-27 21:10 | EDM.PDOC ---
ED HPI GENERAL MEDICAL PROBLEM - General Chief Complaint: Lower Extremity Injury/Pain Stated Complaint: FEET SWELLING UP Time Seen by Provider: 07/27/21 21:00 - History of Present Illness INITIAL COMMENTS - FREE TEXT/NARRATIVE: 50-year-old male on metoprolol warfarin and Lasix with a history of hypokalemia but who is finished his potassium supplements who is presenting with 3 days of gradually worsening primarily right leg swelling. The tightness has become uncomfortable. He has been trying to elevate it but the symptoms have continued to worsen. No fevers no chest pain no shortness of breath no lightheadedness dizziness or other symptoms. He reports compliance with his medications. He denies prior history of blood clot. ROS: General: No fever. Skin: No rash. Eyes: No vision problems. ENT: No sore throat. Neck: No neck stiffness. Respiratory: No shortness of breath. Cardiac: No chest pain. Gastrointestinal: No nausea, vomiting or abdominal pain. Urinary: No dysuria. Musculoskeletal: Per HPI Neurologic: No headache. - Related Data Allergies Allergy/AdvReac Type Severity Reaction Status Date / Time No Known Allergies Allergy Verified 08/06/20 21:35 Home Meds: Home Meds Losartan/Hydrochlorothiazide [Losartan-HCTZ 50-12.5 MG] 1 tab PO DAILY 07/31/20 [History] Metoprolol Succinate [Toprol XL] 25 mg PO DAILY 07/31/20 [History] Furosemide [Lasix] 40 mg PO DAILY #3 tab 08/07/20 [Rx] Enoxaparin [Lovenox] 150 mg SQ BID 7 Days #14 ml 07/27/21 [Rx] Warfarin [Coumadin] 5 mg PO DAILY 07/27/21 [History] Past Medical History - Past Health History Medical/Surgical History: Denies Medical/Surgical History HEENT History: Reports: None Cardiovascular History: Reports: Hypertension Other Cardiovascular History: irregular heart rate Respiratory History: Reports: None, Sleep Apnea Other Respiratory History: needs sleep study and machine Gastrointestinal History: Reports: None Genitourinary History: Reports: None Musculoskeletal History: Reports: None Neurological History: Reports: None Psychiatric History: Reports: None Endocrine/Metabolic History: Reports: None Hematologic History: Reports: None Immunologic History: Reports: None Oncologic (Cancer) History: Reports: None Dermatologic History: Reports: None - Past Surgical History Head Surgeries/Procedures: Reports: None HEENT Surgical History: Reports: None Cardiovascular Surgical History: Reports: None Respiratory Surgical History: Reports: None GI Surgical History: Reports: None Male Surgical History: Reports: None Endocrine Surgical History: Reports: None Neurological Surgical History: Reports: None Musculoskeletal Surgical History: Reports: None Oncologic Surgical History: Reports: None Dermatological Surgical History: Reports: None Social & Family History - Family History Family Medical History: No Pertinent Family History - Caffeine Use Caffeine Use: Reports: Tea Review of Systems - Review of Systems Review Of Systems: See Below ED EXAM, GENERAL - Physical Exam Exam: See Below Free Text/Narrative:: General Appearance: No acute distress, appears comfortable Skin: No rash HEENT: Normocephalic/atraumatic, sclera anicteric, mucous membranes moist Neck: Normal range of motion Musculoskeletal: 2+ pitting edema to the midshin on the right, 1+ pitting edema to the midshin on the left there is no focal crepitus there is no ecchymosis or erythema or other discoloration there is no focal tenderness bilateral extremities warm and well-perfused Neurologic: Awake, alert, no obvious deficits, moving all extremities Psychiatric: Appropriate, cooperative Course - Vital Signs Last Recorded V/S: Last Vital Signs Temp 97.4 F 07/27/21 21:09 Pulse 45 L 07/27/21 21:09 Resp 20 07/27/21 21:09 BP 143/84 H 07/27/21 21:09 Pulse Ox 95 07/27/21 21:09 - Orders/Labs/Meds Labs: Laboratory Tests 07/27/21 07/27/21 07/27/21 Range/Units 21:13 21:13 21:13 WBC 7.46 (4.0-11.0) K/uL RBC 5.44 (4.50-5.90) M/uL Hgb 16.6 (13.0-17.0) g/dL Hct 47.3 (38.0-50.0) % MCV 86.9 (80.0-98.0) fL MCH 30.5 (27.0-32.0) pg MCHC 35.1 (31.0-37.0) g/dL RDW Std Deviation 41.0 (28.0-62.0) fl RDW Coeff of [place] 13 (11.0-15.0) % Plt Count 172 (150-400) K/uL MPV 11.40 (7.40-12.00) fL Neut % (Auto) 53.7 (48.0-80.0) % Lymph % (Auto) 26.7 (16.0-40.0) % [place] % (Auto) 13.3 (0.0-15.0) % Eos % (Auto) 6.2 (0.0-7.0) % Baso % (Auto) 0.1 (0.0-1.5) % Neut # (Auto) 4.0 (1.4-5.7) K/uL Lymph # (Auto) 2.0 (0.6-2.4) K/uL [place] # (Auto) 1.0 H (0.0-0.8) K/uL Eos # (Auto) 0.5 (0.0-0.7) K/uL Baso # (Auto) 0.0 (0.0-0.1) K/uL Nucleated RBC % 0.0 /100WBC Nucleated RBCs # 0 K/uL INR 1.14 D-Dimer, Quantitative 5.15 H (0.0-0.50) mg/L FEU Sodium 139 (136-148) mmol/L Potassium 3.6 (3.5-5.1) mmol/L Chloride 100 (98-107) mmol/L Carbon Dioxide 27.1 (21.0-32.0) mmol/L BUN 18 (7.0-18.0) mg/dL Creatinine 1.1 (0.8-1.3) mg/dL Est Cr Clr Drug Dosing TNP Estimated GFR (MDRD) > 60.0 ml/min Glucose 97 (74-106) mg/dL Calcium 8.6 (8.5-10.1) mg/dL Total Bilirubin 0.7 (0.2-1.0) mg/dL AST 20 (15-37) IU/L ALT 28 (14-63) IU/L Alkaline Phosphatase 63 (46-116) U/L B-Natriuretic Peptide (<100) PG/ML Total Protein 7.6 (6.4-8.2) g/dL Albumin 3.8 (3.4-5.0) g/dL Globulin 3.8 (2.6-4.0) g/dL Albumin/Globulin Ratio 1.0 (0.9-1.6) 07/27/21 Range/Units 21:13 WBC (4.0-11.0) K/uL RBC (4.50-5.90) M/uL Hgb (13.0-17.0) g/dL Hct (38.0-50.0) % MCV (80.0-98.0) fL MCH (27.0-32.0) pg MCHC (31.0-37.0) g/dL RDW Std Deviation (28.0-62.0) fl RDW Coeff of [place] (11.0-15.0) % Plt Count (150-400) K/uL MPV (7.40-12.00) fL Neut % (Auto) (48.0-80.0) % Lymph % (Auto) (16.0-40.0) % [place] % (Auto) (0.0-15.0) % Eos % (Auto) (0.0-7.0) % Baso % (Auto) (0.0-1.5) % Neut # (Auto) (1.4-5.7) K/uL Lymph # (Auto) (0.6-2.4) K/uL [place] # (Auto) (0.0-0.8) K/uL Eos # (Auto) (0.0-0.7) K/uL Baso # (Auto) (0.0-0.1) K/uL Nucleated RBC % /100WBC Nucleated RBCs # K/uL INR D-Dimer, Quantitative (0.0-0.50) mg/L FEU Sodium (136-148) mmol/L Potassium (3.5-5.1) mmol/L Chloride (98-107) mmol/L Carbon Dioxide (21.0-32.0) mmol/L BUN (7.0-18.0) mg/dL Creatinine (0.8-1.3) mg/dL Est Cr Clr Drug Dosing Estimated GFR (MDRD) ml/min Glucose (74-106) mg/dL Calcium (8.5-10.1) mg/dL Total Bilirubin (0.2-1.0) mg/dL AST (15-37) IU/L ALT (14-63) IU/L Alkaline Phosphatase (46-116) U/L B-Natriuretic Peptide 8 (<100) PG/ML Total Protein (6.4-8.2) g/dL Albumin (3.4-5.0) g/dL Globulin (2.6-4.0) g/dL Albumin/Globulin Ratio (0.9-1.6) Meds: Medications Discontinued Medications Generic Name Dose Route Start Last Admin Trade Name Michael PRN Reason Stop Dose Admin Enoxaparin Sodium 150 mg 07/27/21 22:53 07/27/21 23:04 Enoxaparin 150 Mg/1 Ml Syringe SUBCUT 07/27/21 22:54 150 mg ONETIME ONE Administration Departure - Departure Time of Disposition: 23:31 Disposition: Home, Self-Care 01 Condition: Good Clinical Impression: Right leg swelling - Discharge Information *PRESCRIPTION DRUG MONITORING PROGRAM REVIEWED*: Not Applicable *COPY OF PRESCRIPTION DRUG MONITORING REPORT IN PATIENT BERE: Not Applicable Prescriptions: Enoxaparin [Lovenox] 150 mg SQ BID 7 Days #14 ml Instructions: Peripheral Edema Referrals: Shelton Cheema MD [Primary Care Provider] - 2 Days Forms: ED Department Discharge Additional Instructions: Your leg swelling could be due to a blood clot in your leg. I have ordered an outpatient ultrasound. You should receive a phone call within the next 2 days in order to have this done. Please be sure to call your doctors office tomorrow morning. We have sent a referral to them as well. They will need to see you and monitor your blood work in order to change your Coumadin dose to bring your INR up to a therapeutic level. If your symptoms worsen or you have any other new symptoms that concern you please call your doctor or return to the ER. The following information is given to patients seen in the emergency department who are being discharged to home. This information is to outline your options for follow-up care. We provide all patients seen in our emergency department with a follow-up referral. The need for follow-up, as well as the timing and circumstances, are variable depending upon the specifics of your emergency department visit. If you don't have a primary care physician on staff, we will provide you with a referral. We always advise you to contact your personal physician following an emergency department visit to inform them of the circumstance of the visit and for follow-up with them and/or the need for any referrals to a consulting specialist. The emergency department will also refer you to a specialist when appropriate. This referral assures that you have the opportunity for follow-up care with a specialist. All of these measure are taken in an effort to provide you with optimal care, which includes your follow-up. Under all circumstances we always encourage you to contact your private physician who remains a resource for coordinating your care. When calling for follow-up care, please make the office aware that this follow-up is from your recent emergency room visit. If for any reason you are refused follow-up, please contact the [facility] Emergency Department at and asked to speak to the emergency department charge nurse. Sepsis Event Note (ED) - Focused Exam Vital Signs: Vital Signs Temp Pulse Resp BP Pulse Ox 07/27/21 21:09 97.4 F 45 L 20 143/84 H 95 - Assessment/Plan Assessment:: 50-year-old male presenting with asymmetric lower extremity peripheral edema. DVT needs to be considered is much less likely given that he is on warfarin. INR and D-dimer pending. Worsening fluid overload would be the most likely alternative diagnosis CBC CMP and BNP added. If INR is therapeutic and D-dimer is unremarkable we can exclude DVT at that time and I would not ultrasound. In that case patient will be given a one-time booster dose of Lasix and will follow up with his primary care doctor. Findings do not suggest a cellulitis or deep space infection 2350: I offered a video digital asset specialist but patient preferred to have his brother come back. The patient's INR is subtherapeutic and his D-dimer is positive. Given this we must consider DVT. His BNP is normal I do not think this represents new heart failure. The patient requires anticoagulation regar dless and so I do not think he needs his ultrasound emergently. He was given a dose of Lovenox here and a short prescription for Lovenox to bridge was sent to the pharmacy. I have ordered an outpatient ultrasound. Patient will follow up with his primary care provider at [facility] for Coumadin treatment adjustment he understands the importance of calling tomorrow to make that appoi ntment.
[2021-07-27 21:43] LABS: BLOOD UREA NITROGEN,BUN 18 mg/dL (7.0-18.0); CARBON DIOXIDE,CO2 27.1 mmol/L (21.0-32.0); CHLORIDE,CL 100 mmol/L (98-107); GLUCOSE RANDOM 97 mg/dL (74-106); POTASSIUM,K 3.6 mmol/L (3.5-5.1); SODIUM,NA 139 mmol/L (136-148)
[2021-07-27] MEDS ORDERED: Enoxaparin 150 MG/1 ML Syringe SUBCUT ONE (22:53)
== END 2021-07-28 00:05 | disposition home or self-care (01) ==
LOC: MW.ED 19:17
DX: M79.89 Other specified soft tissue disorders (principal); I10 Essential (primary) hypertension; Z79.899 Other long term (current) drug therapy
CPT/HCPCS: 36415; 80053; 83880; 85025; 85379; 85610; 96372; 99283; J1650

== ENCOUNTER 2022-01-12 20:21 | Emergency (ER) | payer SELFPAY ==
[2022-01-12 21:44] LABS: BLOOD UREA NITROGEN,BUN 13 mg/dL (7.0-18.0); CARBON DIOXIDE,CO2 24.5 mmol/L (21.0-32.0); CHLORIDE,CL 107 mmol/L (98-107); GLUCOSE RANDOM 105 mg/dL (74-106); POTASSIUM,K 3.8 mmol/L (3.5-5.1); SODIUM,NA 144 mmol/L (136-148)
[2022-01-12] MEDS ORDERED: Losartan 50 MG Tab PO ONE (22:11)
[2022-01-12] MEDS ORDERED: Furosemide 20 MG Tab PO ONE (22:11)
[2022-01-12] MEDS: Metoprolol Succinate 25 MG Tab.ER PO ONE ×2 (22:21→22:25)
[2022-01-12] MEDS ORDERED: Metoprolol Succinate 25 MG Tab.ER PO STA (22:24)
== END 2022-01-12 22:39 | disposition home or self-care (01) ==
LOC: MW.ED 20:21
DX: R51.9 Headache, unspecified (principal); I10 Essential (primary) hypertension; H53.8 Other visual disturbances; Z76.0 Encounter for issue of repeat prescription; Z79.899 Other long term (current) drug therapy
CPT/HCPCS: 36415; 70450; 80053; 85025; 85610; 99284; A9270; 99283

== ENCOUNTER 2022-04-20 18:34 | Emergency (ER) | payer SELFPAY ==
[2022-04-20] MEDS ORDERED: Sodium Chloride 0.9% 10 ML Syringe FLUSH PRN (18:38)
[2022-04-20] MEDS ORDERED: Sodium Chloride 0.9% 2.5 ML Syringe FLUSH PRN (18:38)
[2022-04-20 19:27] LABS: BLOOD UREA NITROGEN,BUN 17 mg/dL (7.0-18.0); CARBON DIOXIDE,CO2 25.1 mmol/L (21.0-32.0); CHLORIDE,CL 104 mmol/L (98-107); GLUCOSE RANDOM 105 mg/dL (74-106); POTASSIUM,K 3.9 mmol/L (3.5-5.1); SODIUM,NA 137 mmol/L (136-148)
== END 2022-04-20 21:19 | disposition home or self-care (01) ==
LOC: MW.ED 18:34
DX: R07.89 Other chest pain (principal); I10 Essential (primary) hypertension; Z79.899 Other long term (current) drug therapy
CPT/HCPCS: 36415; 71045; 71045-26; 80053; 83735; 84484; 85025; 85379; 85610; 93005; 99285-25

== ENCOUNTER 2022-12-07 14:04 | Emergency (ER) | payer SELFPAY ==
[2022-12-07] MEDS ORDERED: Acetaminophen 325 MG Tab PO ONE (14:51)
[2022-12-07] MEDS: Metoclopramide 10 MG/2 ML SDV IVPUSH ONE ×2 (15:12→15:34)
[2022-12-07] MEDS: Lactated Ringers 1,000 ML IV ONE ×2 (15:13→15:34)
[2022-12-07 15:58] LABS: CORONAVIRUS COVID-19 NAA NEGATIVE (NEGATIVE); INFLUENZA A NAA NEGATIVE (NEGATIVE); INFLUENZA B NAA NEGATIVE (NEGATIVE); RESPIRATORY SYNCYTIAL VIR NAA NEGATIVE (NEGATIVE)
== END 2022-12-07 17:35 | disposition home or self-care (01) ==
LOC: MW.ED 14:04
DX: R51.9 Headache, unspecified (principal); I10 Essential (primary) hypertension; I25.10 Atherosclerotic heart disease of native coronary artery without angina pectoris; Z79.01 Long term (current) use of anticoagulants; Z79.899 Other long term (current) drug therapy; Z20.822 Contact with and (suspected) exposure to COVID-19
CPT/HCPCS: 0241U; 36415; 70450; 85610; 99284; A9270; J2765; J7120

== ENCOUNTER 2023-06-27 19:38 | Emergency (ER) | payer SELFPAY ==
[2023-06-27 21:27] LABS: BASOPHILS PERCENT AUTO 0.2 % (0.0-1.5); EOSINOPHILS ABSOLUTE AUTO 0.4 K/uL (0.0-0.7); EOSINOPHILS PERCENT AUTO 6.2 % (0.0-7.0); HEMATOCRIT 46.9 % (38.0-50.0); HEMOGLOBIN 16.1 g/dL (13.0-17.0); LYMPHOCYTES ABSOLUTE AUTO 1.9 K/uL (0.6-2.4); LYMPHOCYTES PERCENT AUTO 33.6 % (16.0-40.0); MEAN CORPUSCULAR HEMOGLOBIN 30.4 pg (27.0-32.0); MEAN CORPUSCULAR HGB CONC 34.3 g/dL (31.0-37.0); MEAN CORPUSCULAR VOLUME 88.7 fL (80.0-98.0); MONOCYTES ABSOLUTE AUTO 0.8 K/uL (0.0-0.8); MONOCYTES PERCENT AUTO 13.4 % (0.0-15.0); NEUTROPHILS ABSOLUTE AUTO 2.7 K/uL (1.4-5.7); NEUTROPHILS PERCENT AUTO 46.6 % (48.0-80.0); NRBC ABSOLUTE 0 K/uL; PLATELET COUNT,PLT 173 K/uL (150-400); RED BLOOD CELL COUNT 5.29 M/uL (4.50-5.90); WHITE BLOOD CELL COUNT,WBC 5.68 K/uL (4.0-11.0)
[2023-06-27 21:57] LABS: ALBUMIN 3.8 g/dL (3.4-5.0); BILIRUBIN TOTAL 0.4 mg/dL (0.2-1.0); CALCIUM 8.4 mg/dL (8.5-10.1); CARBON DIOXIDE,CO2 26.3 mmol/L (21.0-32.0); CREATININE 1.1 mg/dL (0.8-1.3); EST CRCL DRUG DOSING (CG) 86.22 mL/min; POTASSIUM,K 3.9 mmol/L (3.5-5.1); PROTEIN TOTAL,TP 7.6 g/dL (6.4-8.2)
== END 2023-06-27 22:29 | disposition home or self-care (01) ==
LOC: MW.ED 19:38
DX: R20.2 Paresthesia of skin (principal); I10 Essential (primary) hypertension; R20.0 Anesthesia of skin; E11.9 Type 2 diabetes mellitus without complications; Z79.899 Other long term (current) drug therapy
CPT/HCPCS: 36415; 80053; 84484; 85025; 93010; 99283; 99284

== ENCOUNTER 2024-01-21 23:54 | Emergency (ER) | payer SELFPAY ==
[2024-01-22] MEDS: Sodium Chloride 0.9% 10 ML Syringe FLUSH PRN (00:11)
[2024-01-22] MEDS: Sodium Chloride 0.9% 2.5 ML Syringe FLUSH PRN (00:11)
[2024-01-22 00:15] LABS: BASOPHILS ABSOLUTE AUTO 0.03 K/uL (0.00-0.20); BASOPHILS PERCENT AUTO 0.4 % (0.0-1.0); EOSINOPHILS ABSOLUTE AUTO 0.39 K/uL (0.00-0.45); EOSINOPHILS PERCENT AUTO 5.5 % (0.0-6.0); HEMATOCRIT 47.8 % (42.0-52.0); HEMOGLOBIN 16.3 g/dL (14.0-18.0); IMMATURE GRAN ABSOLUTE AUTO 0.01 K/uL (0.00-0.05); IMMATURE GRAN PERCENT AUTO 0.1 % (0.0-0.4); LYMPHOCYTES ABSOLUTE AUTO 2.66 K/uL (1.00-4.80); LYMPHOCYTES PERCENT AUTO 37.8 % (24.0-44.0); MEAN CORPUSCULAR HGB CONC 34.1 g/dL (32.0-36.0); MEAN PLATELET VOLUME 11.3 fL (9.4-12.4); MONOCYTES ABSOLUTE AUTO 0.75 K/uL (0.00-0.80); MONOCYTES PERCENT AUTO 10.7 % (0.0-8.0); NEUTROPHILS PERCENT AUTO 45.5 % (41.0-71.0); PLATELET COUNT,PLT 174 K/uL (150-400); RED BLOOD CELL COUNT 5.43 M/uL (4.52-5.90); WHITE BLOOD CELL COUNT,WBC 7.04 K/uL (3.9-11.3)
[2024-01-22 00:42] LABS: A/G RATIO 0.9 (0.9-1.6); ALBUMIN 3.6 g/dL (3.4-5.0); BILIRUBIN TOTAL 0.5 mg/dL (0.2-1.0); CALCIUM 8.4 mg/dL (8.5-10.1); CARBON DIOXIDE,CO2 24.3 mmol/L (21.0-32.0); CREATININE 1.1 mg/dL (0.8-1.3); EST CRCL DRUG DOSING (CG) 97.88 mL/min; POTASSIUM,K 3.6 mmol/L (3.5-5.1); PROTEIN TOTAL,TP 7.5 g/dL (6.4-8.2)
[2024-01-22 00:57] LABS: INR 4.04 (0.86-1.11)
[2024-01-22 00:59] LABS: D-DIMER QUANTITATIVE < 0.19 mg/L FEU (0.00-0.50)
[2024-01-22] MEDS: Furosemide 40 MG/4 ML VIAL IVPUSH ONE (01:02)
[2024-01-22] MEDS: Potassium Chloride 10% 20 MEQ/15 ML Soln 15 ML UD Cup PO ONE (01:03)
== END 2024-01-22 02:04 | disposition home or self-care (01) ==
LOC: MW.ED 23:54
DX: R60.0 Localized edema (principal); R42 Dizziness and giddiness; I10 Essential (primary) hypertension; R79.1 Abnormal coagulation profile; E78.00 Pure hypercholesterolemia, unspecified; Z79.899 Other long term (current) drug therapy; Z79.01 Long term (current) use of anticoagulants
CPT/HCPCS: 36415; 70450; 80053; 83735; 83880; 84484; 85025; 85379; 85610; 96374; 99284; A9270; J1940; J3490; 93010

== ENCOUNTER 2024-04-15 18:21 | Emergency (ER) | payer SELFPAY ==
[2024-04-15 18:49] LABS: APPEARANCE,URINE CLEAR; BILIRUBIN,URINE NEGATIVE (NEGATIVE); COLOR,URINE YELLOW; GLUCOSE,URINE NEGATIVE (NEGATIVE); KETONES,URINE NEGATIVE (NEGATIVE); LEUKOCYTE ESTERASE,URINE NEGATIVE (NEGATIVE); NITRITE,URINE NEGATIVE (NEGATIVE); OCCULT BLOOD,URINE NEGATIVE (NEGATIVE); PH,URINE 5.5 (5.0-8.0); PROTEIN,URINE NEGATIVE (NEGATIVE); UROBILINOGEN,URINE 0.2 EU/dL (<2.0)
[2024-04-15] MEDS: traMADol 50 MG Tab PO STA (19:30)
[2024-04-15] MEDS: Methocarbamol 750 MG Tab PO STA (19:30)
== END 2024-04-15 19:31 | disposition home or self-care (01) ==
LOC: MW.ED 18:21
DX: S39.012A Strain of muscle, fascia and tendon of lower back, initial encounter (principal); I10 Essential (primary) hypertension; Z79.899 Other long term (current) drug therapy; Z79.01 Long term (current) use of anticoagulants; Z75.8 Other problems related to medical facilities and other health care; X50.0XXA Overexertion from strenuous movement or load, initial encounter; Y99.0 Civilian activity done for income or pay
CPT/HCPCS: 81003; 99283; A9270

== ENCOUNTER 2024-06-22 00:16 | Emergency (ER) | payer SELFPAY ==
[2024-06-22] MEDS: Metoprolol Succinate 25 MG Tab.ER PO ONE (00:57)
[2024-06-22] MEDS: Potassium Chloride 20 MEQ Tab.ER PO ONE (00:58)
[2024-06-22] MEDS: Furosemide 40 MG Tab PO ONE (00:58)
[2024-06-22] MEDS: Losartan 50 MG Tab PO ONE (01:05)
[2024-06-22] MEDS: Warfarin 5 MG Tab PO ONE (01:05)
== END 2024-06-22 01:18 | disposition home or self-care (01) ==
LOC: MW.ED 00:16
DX: I10 Essential (primary) hypertension (principal); R60.9 Edema, unspecified; Z79.899 Other long term (current) drug therapy
CPT/HCPCS: 99283; A9270

== ENCOUNTER 2024-08-10 02:22 | Emergency (ER) | payer SELFPAY ==
[2024-08-10] MEDS: Acetaminophen/HYDROcodone 325-5 MG Tab PO ONE (04:47)
== END 2024-08-10 04:57 | disposition home or self-care (01) ==
LOC: MW.ED 02:22
DX: S89.91XA Unspecified injury of right lower leg, initial encounter (principal); M25.061 Hemarthrosis, right knee; I10 Essential (primary) hypertension; Z79.899 Other long term (current) drug therapy; Z75.8 Other problems related to medical facilities and other health care; X50.1XXA Overexertion from prolonged static or awkward postures, initial encounter
CPT/HCPCS: 73562; 73700; 99284; A9270; 99283

== ENCOUNTER 2024-10-17 13:58 | Emergency (ER) | payer SELFPAY ==
[2024-10-17] MEDS: Cephalexin 500 MG Cap PO ONE (14:48)
== END 2024-10-17 14:54 | disposition home or self-care (01) ==
LOC: MW.ED 13:58
DX: L03.032 Cellulitis of left toe (principal); L03.031 Cellulitis of right toe; I48.91 Unspecified atrial fibrillation; I10 Essential (primary) hypertension; Z79.01 Long term (current) use of anticoagulants; Z79.899 Other long term (current) drug therapy
CPT/HCPCS: 99283; A9270

== ENCOUNTER 2024-12-19 15:42 | Emergency (ER) | payer SELFPAY ==
[2024-12-19] MEDS: Cephalexin 500 MG Cap PO ONE (18:42)
== END 2024-12-19 19:03 | disposition home or self-care (01) ==
LOC: MW.ED 15:42
DX: L02.212 Cutaneous abscess of back [any part, except buttock and flank] (principal); I10 Essential (primary) hypertension; Z79.01 Long term (current) use of anticoagulants; Z79.899 Other long term (current) drug therapy
CPT/HCPCS: 99283; A9270

== ENCOUNTER 2025-03-10 17:42 | Emergency (ER) | payer SELFPAY | END 2025-03-10 18:10 | disposition home or self-care (01) | LOC: MW.ED 17:42 | DX: Z76.0 Encounter for issue of repeat prescription (principal); I48.91 Unspecified atrial fibrillation; I10 Essential (primary) hypertension; Z79.899 Other long term (current) drug therapy; Z79.01 Long term (current) use of anticoagulants | CPT/HCPCS: 99281; 99282 ==

== ENCOUNTER 2025-06-13 14:24 | Emergency (ER) | payer SELFPAY | END 2025-06-13 18:37 | disposition home or self-care (01) | LOC: MW.ED 14:24 | DX: Z76.0 Encounter for issue of repeat prescription (principal); I48.91 Unspecified atrial fibrillation; I10 Essential (primary) hypertension; Z79.01 Long term (current) use of anticoagulants; Z79.899 Other long term (current) drug therapy | CPT/HCPCS: 99281; 99282 ==